=== PATIENT | male | born 1980 | race Two or more races ===

== ENCOUNTER 2025-08-11 14:59 | Inpatient (IN) | payer MEDICAID, OTHER ==
[~2025-08-11] VITALS: Ht 167.6 cm; Wt 118.0 kg
[2025-08-11] MEDS: SODIUM CHLORIDE 0.9% 1,000 ML IV ONE (15:15)
--- NOTE | 2025-08-11 15:18 | ED.PDOC ---
History of Present Illness HPI Comments 44-year-old male came to the ER because he was having right-sided weakness which started this morning around 7:00 a.m.. Patient woke up with right upper arm weakness. He is still went to work when the workers noticed study was having weakness of the right upper extremity was given aspirin by one of the employees. He does have a history of hypotension. Never had symptoms like this in the past. Denies dizziness nausea vomiting. Denies any other symptoms. Chief Complaint: Right Sided Weakness Time Seen by MD: 15:01 Reviewed Notes: Nurses Notes, Medications, Allergies Information Source: Patient Mode of Arrival: Wheelchair Severity: Moderate Timing: Hours Duration: Since onset Past Medical History PAST MEDICAL HISTORY: HTN Surgical History: Denies all surgeries Social History Smoker: Non-Smoker Alcohol: Denies ETOH Use Drugs: Denies Drug Use Constitutional: denies: chills, diaphoresis, fatigue, fever, malaise, sweats, weakness, others EENTM: denies: blurred vision, double vision, ear bleeding, ear discharge, ear drainage, ear pain, ear ringing, eye pain, eye redness, hearing loss, mouth pain, mouth swelling, nasal discharge, nose bleeding, nose congestion, nose pain, photophobia, tearing, throat pain, throat swelling, voice changes, others Respiratory: denies: cough, hemoptysis, orthopnea, SOB at rest, shortness of breath, SOB with excertion, stridor, wheezing, others Cardiovascular: denies: chest pain, dizzy spells, diaphoresis, Dyspnea on exertion, edema, irregular heart beat, left arm pain, lightheadedness, palpitations, PND, syncope, others Gastrointestinal: denies: abdomen distended, abdominal pain, blood streaked bowels, constipated, diarrhea, dysphagia, difficulty swallowing, hematemesis, melena, nausea, poor appetite, poor fluid intake, rectal bleeding, rectal pain, vomiting, others Genitourinary: denies: burning, dysuria, flank pain, frequency, hematuria, incontinence, penile discharge, penile sore, pain, testicle pain, testicle swelling, urgency, others Neurological: reports: right sided weakness; denies: dizziness, fainting, headache, left sided numbness, left sided weakness, numbness, paresthesia, pre- existing deficit, right sided numbness, seizure, speech problems, tingling, tremors, weakness, others Musculoskeletal: denies: back pain, gout, joint pain, joint swelling, muscle pain, muscle stiffness, neck pain, others Integumetry: denies: bruises, change in color, change in hair/nails, dryness, laceration, lesions, lumps, rash, wounds, others Allergic/Immunocompromised: denies: Difficulty Healing, Frequent Infections, Hives, Itching, others Hematologic/Lymphatic: denies: anemia, blood clots, easy bleeding, easy bruising, swollen glands, others Endocrine: denies: excessive hunger, excessive sweating, excessive thirst, excessive urination, flushing, intolerance to cold, intolerance to heat, unexplained weight gain, unexplained weight loss, others Psychiatric: denies: anxiety, bipolar disorder, depression, hopeless, panic disorder, schizophrenia, sleepless, suicidal, others Physical Exam General Appearance: Moderate Distress HEENT: Normal ENT Inspection, Pharynx Normal, TMs Normal Neck: Full Range of Motion, Non-Tender, Normal, Normal Inspection Respiratory: Chest Non-Tender, Lungs Clear, No Accessory Muscle Use, No Respir atory Distress, Normal Breath Sounds Cardiovascular: No Edema, No JVD, No Murmur, No Gallop, Normal Peripheral Pulses, Regular Rate/Rhythm Breast Exam: Deferred Gastrointestinal: No Organomegaly, Non Tender, No Pulsatile Mass, Normal Bowel Sounds, Soft Genitalia: Deferred Pelvic: Deferred Rectal: Deferred Extremities: No calf tenderness, Normal capillary refill, Normal inspection, Normal range of motion, Non-tender, No pedal edema Musculoskeletal : Apperance: Normal Neurologic: Alert, inpatient pharmacist II-XII nml as Tested, No Motor Deficits, Normal Affect, Normal Mood, No Sensory Deficits Cerebellar Function: Normal Reflexes: Normal Skin: Dry, Normal Color, Warm Peripheral Pulses: 3+ Radial (R), 3+ Radial (L) Lymphatic: No Adenopathy Was a procedure done? Was a procedure done?: No EKG EKG : Pulse Rate (adult): 76 Cardiac Rhythm: NSR Differential Dx Considerations may include: TIA Electrolyte imbalance X-Ray, Labs, Meds, VS Vital Signs Date Time Temp Pulse Resp B/P (MAP) Pulse Ox O2 Delivery O2 Flow Rate FiO2 08/11/25 15:02 98.1 91 18 169/84 96 98.1 Lab Test 08/11/25 15:20 Range/Units White Blood Count 9.3 4.4-10.8 10^3/uL Red Blood Count 5.84 4.5-5.90 10^6/uL Hemoglobin 16.1 13.5-17.5 g/dL Hematocrit 46.2 41.0-53.0 % Mean Corpuscular Volume 79.0 L 80.0-100.0 fL Mean Corpuscular Hemoglobin 27.5 L 28.0-32.0 pg Mean Corpuscular Hemoglobin Concent 34.8 32.0-36.0 g/dL Red Cell Distribution Width 13.2 11.8-14.3 % Platelet Count 299 140-450 10^3/uL Mean Platelet Volume 7.0 6.9-10.8 fL Neutrophils (%) (Auto) 79.3 37.0-80.0 % Lymphocytes (%) (Auto) 13.8 10.0-50.0 % Monocytes (%) (Auto) 5.5 0.0-12.0 % Eosinophils (%) (Auto) 0.9 0.0-7.0 % Basophils (%) (Auto) 0.5 0.0-2.0 % Neutrophils # (Auto) 7.4 1.6-8.6 10 ^3/uL Lymphocytes # (Auto) 1.3 0.4-5.4 10 ^3/uL Monocytes # (Auto) 0.5 0-1.3 10 ^3/uL Eosinophils # (Auto) 0.1 0-0.8 10 ^3/uL Basophils # (Auto) 0 0-0.2 10 ^3/uL Nucleated Red Blood Cells 0.1 % Sodium Level 141 136-145 mmol/L Potassium Level 3.9 3.5-5.1 mmol/L Chloride Level 106 98-107 mmol/L Carbon Dioxide Level 27 20-31 mmol/L Anion Gap 8 5-15 Blood Urea Nitrogen 11 9-23 mg/dL Creatinine 1.16 0.700-1.30 mg/dL Glomerular Filtration Rate Calc 80 >90 mL/min BUN/Creatinine Ratio 9.5 L 10.0-20.0 Serum Glucose 110 H 74-106 mg/dL Calcium Level 8.8 8.7-10.4 mg/dL Current Medications Medications (Trade) Dose Ordered Sig/Vitaly Route Start Time Stop Time Status Last Admin Sodium Chloride 1,000 ml @ 1,000 mls/hr Q1H ONCE IV 08/11/25 15:15 08/11/25 16:14 DC 08/11/25 15:15 Aspirin 325 mg ONCE ONCE PO 08/11/25 15:15 08/11/25 15:16 DC 08/11/25 16:04 Patient alert pain Complaining of right-sided weakness. Vitals stable. Answering questions. Blood pressure elevated. Was given clonidine. He does have weakness of the right upper lower extremities. EKG reviewed does not show any acute changes. Explained to the patient. Continue monitoring. Time of 1ST Reevaluation: 15:16 Reevaluation 1ST: Unchanged Patient Education/Counseling: Diagnosis, Treatment, Prognosis Family Education/Counseling: No Family Present SEPSIS Sepsis Screen Date sepsis recognized/suspect: Aug 11, 2025 Time Sepsis recognized/suspect: 1502 Recent Procedure: No On Antibiotic Therapy: No Respiratory Rate >20: No Heart Rate >90: No Temp<36 C (96.8 F) or >38.3 C: No SBP <90 or MAP <65 mmHG: No New Acute Mental Status Change: No Is the patient on CPAP, BIPAP,: No Physician Orders Head Without Contrast (08/11/25 15:13) Electrocardigram (08/11/25 15:28) Clopidogrel Bisulfate (Plavix) (08/11/25 17:00) Vital Signs Date Time Temp Pulse Resp B/P (MAP) Pulse Ox O2 Delivery O2 Flow Rate FiO2 08/11/25 15:02 98.1 91 18 169/84 96 98.1 Laboratory Tests Test 08/11/25 15:20 White Blood Count 9.3 10^3/uL (4.4-10.8) Medications Medications Dose Ordered Sig/Vitaly Route Start Time Stop Time Status Last Admin Dose Admin Aspirin 325 mg ONCE ONCE PO 08/11/25 15:15 08/11/25 15:16 DC 08/11/25 16:04 Sodium Chloride 1,000 ml @ 1,000 mls/hr Q1H ONCE IV 08/11/25 15:15 08/11/25 16:14 DC 08/11/25 15:15 Departure 1 Departure Time of Disposition: 15:17 Impression: Primary Impression: TIA (transient ischemic attack) Disposition: 09 ADMITTED INPATIENT Admit to: Med Surg Condition: Guarded Critical Care Note Critical Care Time?: Yes (90 min-critical care time only) Stability Stability form required: No Heart Score Heart Score: Heart Score Response (Comments) Value History Slightly Suspicious 0 EKG Normal 0 Age <45 0 Risk Factors 1 or 2 risk factors 1 Troponin Normal limit 0 Total 1 FELICIANO BSOS MD Aug 11, 2025 15:18
[2025-08-11 15:32] LABS: Hematocrit 46.2 % (41.0-53.0); Hemoglobin 16.1 g/dL (13.5-17.5); Mean Corpuscular Hemoglobin 27.5 pg (28.0-32.0); Mean Corpuscular Volume 79.0 fL (80.0-100.0); Nucleated Red Blood Cells % 0.1 %
[2025-08-11 15:41] LABS: Chloride 106 mmol/L (98-107); Potassium 3.9 mmol/L (3.5-5.1); Sodium 141 mmol/L (136-145)
[2025-08-11 15:42] LABS: Anion Gap 8 (5-15); Carbon Dioxide 27 mmol/L (20-31)
[2025-08-11 15:43] LABS: Calcium 8.8 mg/dL (8.7-10.4)
[2025-08-11 15:47] LABS: BUN/Creatinine Ratio 9.5 (10.0-20.0); Blood Urea Nitrogen 11 mg/dL (9-23)
[2025-08-11 15:48] LABS: Glucose 110 mg/dL (74-106)
--- NOTE | 2025-08-11 16:19 | DVH ---
Procedure: CT HEAD WITHOUT CONTRAST Study Date and Requested Time: 08/11/2025 03:43 PM History: cva Comparison: None Dose: CTDI: 60.71 mGy DLP: 1094.49 mGycm Technique: Multiplanar images obtained through the brain without intravenous contrast. Findings: Mild diffuse brain atrophy. Severe chronic small-vessel ischemic changes. Small hypodense foci withi n the bilateral basal ganglia and bilateral thalami which may represent lacunar infarcts of unknown c hronicity. No hemorrhages, masses, mass effect, midline shift, or herniation. No intra-axial or extra-axial flui d collections. No evidence of hydrocephalus. The basal cisterns are patent. The pituitary gland, sella and parasellar regions are unremarkable. The cerebellar tonsils are in nor mal position. The cerebellum is unremarkable. The orbits and globes are unremarkable. Minimal mucoperiosteal thickening of the ethmoid air cells. Otherwise, the paranasal sinuses and mastoids are clear. There are no worrisome calvarial lesions. Impression: Small hypodense foci within the bilateral basal ganglia and bilateral thalami which may represent lac unar infarcts of unknown chronicity. MRI would be helpful for further evaluation. Severe chronic small-vessel ischemic changes. Superimposed areas of acute infarct can not be exclude d.
[2025-08-11 16:33] VITALS: PULSE 71; RESP 16; O2SAT 100
[2025-08-11] MEDS: CLOPIDOGREL BISULFATE 75 MG TAB PO ONE (17:36)
--- NOTE | 2025-08-11 18:25 | ECG ---
[facility] Test Date: 2025-08-11 Test Time: 15:15:38 Pat Name: FARZANA CASAS Department: ED Room: [address] [place] [address] Gender: M [employer] Director: NADINE : 1980 Requested By: FELICIANO BOSS Order Number: [id number] Reading MD: Corbin Cleary Measurements Intervals [place] Rate: 76 P: 36 DE: 171 QRS: -7 QRSD: 98 T: 98 QT: 390 QTc: 439 Interpretive Statements Sinus rhythm RSR' in V1 or V2, probably normal variant Borderline T abnormalities, lateral leads Minimal ST elevation, anterior leads Electronically Signed On 08-13-2025 18:45:02 PDT by Corbin Cleary Please click the below link to view image of tracing.
--- NOTE | 2025-08-11 22:59 | DVHHP2 ---
History of Present Illness Reason for Visit: TIA (transient ischemic attack) History of Present Illness The patient is a 44-year-old male with past medical history of hypertension who presented to [facility] ED with complaint of right-sided weakness since this morning. Patient reports he woke up with right upper arm weakness, but went to work, staff member notice patient having weakness of the right upper extremity and was given aspirin by one of the employees. Patient was seen and evaluated in the ED, laboratory data shows WBC 9.3, platelets 299, sodium 141, potassium 3.9, BUN 11, creatinine 1.16, glucose 110, calcium 8.8, blood pressure 171/93 trending down to 143/86, heart rate 64, temperature 98.4 F, O2 saturation 97% on room air. Head CT revealing small hypodense foci within the bilateral basal ganglia and bilateral thalami which may represent lacunar infarcts of unknown chronicity; severe chronic small-vessel ischemic changes; superimposed areas of acute infarct can not be excluded. Please see medication orders section in the computer. On my assessment, patient denies chest pain, no dizziness, headache, shortness a breath, abdominal pain, diarrhea, nausea, vomiting, fever, chills. Patient was admitted for further evaluation and medical management. Past Medical History HTN Past Surgical History Denies all surgeries Family History Reviewed, noncontributory to the management of this case. Past Social History The patient lives at home, denies smoking, alcohol or illicit drugs abuse. Review of Systems Constitutional: Yes: Weakness; No: Fever, Chills, Sweats, Malaise, Other Eyes: No: Pain, Vision change, Conjunctivae inflammation, Eyelid inflammation, Other, Redness ENT: No: Ear pain, Ear discharge, Nose pain, Nose discharge, Nose congestion, Mouth pain, Mouth swelling, Throat pain, Throat swelling, Other Respiratory: No: Cough, Dry, Shortness of breath, SOB with excertion, Wheezing, Hemoptysis, Pleuritic Pain, Sputum, Wheezing, Other Cardiovascular: No: Chest Pain, Palpitations, Orthopnea, Paroxysmal Noc. Dyspnea, Edema, Lt Headedness, Other Gastrointestinal: No: Nausea, Vomiting, Abdominal Pain, Diarrhea, Constipation, Melena, Hematochezia, Other Genitourinary: No Dysuria, No Frequency, No Incontinence, No Hematuria, No Retention, No Other Musculoskeletal: No: other, neck pain, shoulder pain, arm pain, back pain, hand pain, leg pain, foot pain Skin: No: Rash, Lesions, Jaundice, Bruising, Other Neurological: No: Weakness (Right-sided), Numbness, Incoordination, Change in speech, Confusion, Seizures, Other Allergies: Coded Allergies: Sulfa Antibiotics (Verified Allergy, Unknown, 08/11/25) Exam Vital Signs Vital Signs Date Time Temp Pulse Resp B/P (MAP) Pulse Ox O2 Delivery O2 Flow Rate FiO2 08/11/25 22:15 64 17 171/93 (119) 97 08/11/25 19:45 98.4 98.4 08/11/25 19:45 Room Air* 0 21 General Appearance: Alert, Oriented X3, Cooperative, No acute distress HEENT: Atraumatic, PERRLA, EOMI, Mucous membr. moist/pink Respiratory: Clear to auscultation, Normal air movement Cardiovascular: Regular rate, Normal S1, Normal S2, No murmurs Abdominal: Normal bowel sounds, Soft, No tenderness, No hepatospenomegaly, No masses Extremities: No clubbing, No cyanosis, No edema, Normal pulses, Other (Right- sided weakness) Skin: No rashes, No breakdown, No significant lesion Neuro: Normal speech, Normal tone, Sensation intact, Cranial nerves 3-12 NL, Reflexes 2+, Other (Generalized weakness) Psych/Mental Status: Mental status NL, Mood NL Labs/Xrays Labs Test 08/11/25 15:20 Range/Units White Blood Count 9.3 4.4-10.8 10^3/uL Red Blood Count 5.84 4.5-5.90 10^6/uL Hemoglobin 16.1 13.5-17.5 g/dL Hematocrit 46.2 41.0-53.0 % Mean Corpuscular Volume 79.0 L 80.0-100.0 fL Mean Corpuscular Hemoglobin 27.5 L 28.0-32.0 pg Mean Corpuscular Hemoglobin Concent 34.8 32.0-36.0 g/dL Red Cell Distribution Width 13.2 11.8-14.3 % Platelet Count 299 140-450 10^3/uL Mean Platelet Volume 7.0 6.9-10.8 fL Neutrophils (%) (Auto) 79.3 37.0-80.0 % Lymphocytes (%) (Auto) 13.8 10.0-50.0 % Monocytes (%) (Auto) 5.5 0.0-12.0 % Eosinophils (%) (Auto) 0.9 0.0-7.0 % Basophils (%) (Auto) 0.5 0.0-2.0 % Neutrophils # (Auto) 7.4 1.6-8.6 10 ^3/uL Lymphocytes # (Auto) 1.3 0.4-5.4 10 ^3/uL Monocytes # (Auto) 0.5 0-1.3 10 ^3/uL Eosinophils # (Auto) 0.1 0-0.8 10 ^3/uL Basophils # (Auto) 0 0-0.2 10 ^3/uL Nucleated Red Blood Cells 0.1 % Sodium Level 141 136-145 mmol/L Potassium Level 3.9 3.5-5.1 mmol/L Chloride Level 106 98-107 mmol/L Carbon Dioxide Level 27 20-31 mmol/L Anion Gap 8 5-15 Blood Urea Nitrogen 11 9-23 mg/dL Creatinine 1.16 0.700-1.30 mg/dL Glomerular Filtration Rate Calc 80 >90 mL/min BUN/Creatinine Ratio 9.5 L 10.0-20.0 Serum Glucose 110 H 74-106 mg/dL Calcium Level 8.8 8.7-10.4 mg/dL PATIENT: FARZANA CASAS ACCT: [id number] UNIT: [id number] : 1980 LOC: ER ROOM / BED: / AGE / SEX: 44 / M ADM STATUS: REG ER SERVICE 1513 ORDERING PHYSICIAN: FELICIANO BOSS MD PROCEDURE(s): HWOCT - HEAD WITHOUT CONTRAST REASON: cva ORDER NUMBER(s): [id number], ACCESSION NUMBER(s): [id number] Procedure: CT HEAD WITHOUT CONTRAST Study Date and Requested Time: 08/11/2025 03:43 PM History: cva Comparison: None Dose: CTDI: 60.71 mGy DLP: 1094.49 mGycm Technique: Multiplanar images obtained through the brain without intravenous contrast. Findings: Mild diffuse brain atrophy. Severe chronic small-vessel ischemic changes. Small hypodense foci within the bilateral basal ganglia and bilateral thalami which may represent lacunar infarcts of unknown chronicity. No hemorrhages, masses, mass effect, midline shift, or herniation. No intra- axial or extra-axial fluid collections. No evidence of hydrocephalus. The basal cisterns are patent. The pituitary gland, sella and parasellar regions are unremarkable. The cerebellar tonsils are in normal position. The cerebellum is unremarkable. The orbits and globes are unremarkable. Minimal mucoperiosteal thickening of the ethmoid air cells. Otherwise, the paranasal sinuses and mastoids are clear. There are no worrisome calvarial lesions. Impression: Small hypodense foci within the bilateral basal ganglia and bilateral thalami which may represent lacunar infarcts of unknown chronicity. MRI would be helpful for further evaluation. Severe chronic small-vessel ischemic changes. Superimposed areas of acute infarct can not be excluded. SEPSIS Sepsis Screen Date sepsis recognized/suspect: Aug 11, 2025 Time Sepsis recognized/suspect: 2007 Recent Procedure: No On Antibiotic Therapy: No Respiratory Rate >20: No Heart Rate >90: No Temp<36 C (96.8 F) or >38.3 C: No SBP <90 or MAP <65 mmHG: No New Acute Mental Status Change: No Is the patient on CPAP, BIPAP,: No Physician Orders Head Without Contrast (08/11/25 15:13) Aspirin Tablet (08/12/25 10:00) Clopidogrel Bisulfate (Plavix) (08/12/25 10:00) * Neurology Consult (08/11/25 22:55) Losartan Tablet (Cozaar Tablet) (08/12/25 10:00) Hydralazine Injection (Apresoline Inject (08/11/25 23:00) Admit (08/11/25 22:55) Allergies (08/11/25 22:55) Code Status (08/11/25 22:55) Sodium Chloride Lock (Saline Lock Ns) (08/12/25 06:00) Oxygen Per Hour (08/11/25 22:55) Hydrocodone-Acet 5/325mg Tab ([place] 5/32 (08/11/25 23:00) Vital Signs Date Time Temp Pulse Resp B/P (MAP) Pulse Ox O2 Delivery O2 Flow Rate FiO2 08/11/25 22:15 64 17 171/93 (119) 97 08/11/25 19:45 98.4 72 20 180/110 (133) 95 98.4 08/11/25 19:45 Room Air* 0 21 08/11/25 18:35 60 16 170/112 (131) 100 08/11/25 16:33 71 16 149/110 (123) 100 08/11/25 16:33 71 16 100 Room Air* 0 21 08/11/25 15:24 76 08/11/25 15:18 76 08/11/25 15:02 98.1 91 18 169/84 96 98.1 Laboratory Tests Test 08/11/25 15:20 White Blood Count 9.3 10^3/uL (4.4-10.8) Medications Medications Dose Ordered Sig/Vitaly Route Start Time Stop Time Status Last Admin Dose Admin Aspirin 325 mg ONCE ONCE PO 08/11/25 15:15 08/11/25 15:16 DC 08/11/25 16:04 325 MG Clopidogrel Bisulfate 150 mg ONCE ONCE PO 08/11/25 17:00 08/11/25 17:01 DC 08/11/25 17:36 150 MG Sodium Chloride 1,000 ml @ 1,000 mls/hr Q1H ONCE IV 08/11/25 15:15 08/11/25 16:14 DC 08/11/25 15:15 1,000 MLS/HR Assessment/Plan Assessment/Plan TIA (transient ischemic attack) Hypertensive urgency Generalized weakness Plan 1. Admit to telemetry unit 2. Breathing treatment 3. Pain control management 4. Management of fluids and electrolytes 5. Consultation for Neurology 6. Diagnostic tests head CT 7. DVT prophylaxis-on SCDs 8. Repeat labs CBC, CMP in a.m. 9. Continue with current medical management 10. Treatment plan discussed with patient and RN. Patient verbalized understanding. Plan discussed with: Patient, Other (RN) My Orders Orders - NOAH HOLBROOK DNP Procedure Category Date Status Time Aspirin Tablet PHA 08/12/25 Verified 10:00 Clopidogrel Bisulfate PHA 08/12/25 Verified (Plavix) 10:00 * Neurology Consult CONS 08/11/25 Verified 22:55 Losartan Tablet PHA 08/12/25 Verified (Cozaar Tablet) 10:00 Hydralazine Injection PHA 08/11/25 Verified (Apresoline Inject 23:00 Admit ADMIT 10/16/25 Verified 22:55 Allergies ELIZA 08/11/25 Verified 22:55 Code Status CODE 08/11/25 Verified 22:55 Sodium Chloride Lock PHA 08/12/25 Verified (Saline Lock Ns) 06:00 Oxygen Per Hour RT 08/11/25 Verified 22:55 Hydrocodone-Acet PHA 08/11/25 Verified 5/325mg Tab ([place] 23:00 Problem List: (1) TIA (transient ischemic attack) (2) Hypertensive urgency (3) Generalized weakness Date of Service: Aug 11, 2025 Billing Provider: NOAH HOLBROOK DNP Common Visit Codes: [id number] INP/OBS CARE (HIGH) NOAH HOLBROOK DNP Aug 11, 2025 22:59
[2025-08-11] MEDS ORDERED: NITROGLYCERIN 0.4 MG SL TAB SL PRN (23:00)
[2025-08-11] MEDS ORDERED: ONDANSETRON HCL 4 MG/2 ML VIAL IV PRN (23:00)
[2025-08-11] MEDS ORDERED: DOCUSATE SOD 100 MG CAP PO PRN (23:00)
[2025-08-11] MEDS ORDERED: MORPHINE SULFATE INJ 2 MG/ml SYRG IV PRN (23:00)
[2025-08-11] MEDS ORDERED: HYDROcodone-ACET 5/325MG TAB PO PRN (23:00)
[2025-08-11] MEDS ORDERED: ACETAMINOPHEN 325 MG TAB PO PRN (23:00)
[2025-08-12] MEDS: SODIUM CHLOR 0.9% PF (SALINE LOCK) 10ML VIAL/SYR IV SCH (05:35)
[2025-08-12] MEDS: hydrALAZINE HCL 20 MG/ML VL IV PRN (05:38)
[2025-08-12 06:02] LABS: Hematocrit 44.2 % (41.0-53.0); Hemoglobin 15.1 g/dL (13.5-17.5); Mean Corpuscular Hemoglobin 27.1 pg (28.0-32.0); Mean Corpuscular Volume 79.4 fL (80.0-100.0); Nucleated Red Blood Cells % 0.1 %
[2025-08-12 06:19] LABS: Alanine Aminotransferase 18 U/L (7-40); Albumin 4.0 g/dL (3.2-4.8); Alkaline Phosphatase 60 U/L (46-116); Anion Gap 9 (5-15); BUN/Creatinine Ratio 9.9 (10.0-20.0); Blood Urea Nitrogen 11 mg/dL (9-23); Carbon Dioxide 28 mmol/L (20-31); Chloride 107 mmol/L (98-107); Glucose 85 mg/dL (74-106); Potassium 3.8 mmol/L (3.5-5.1); Sodium 144 mmol/L (136-145); Total Protein 6.9 g/dL (5.7-8.2)
[2025-08-12 06:20] LABS: Bilirubin, Total 0.7 mg/dL (0.2-1.0); Calcium 8.6 mg/dL (8.7-10.4)
[2025-08-12 08:00] VITALS: PULSE 90; RESP 16; O2SAT 92
[2025-08-12 09:00] VITALS: BP 183/114; PULSE 68; RESP 16; TEMP 98.5; O2SAT 99
[2025-08-12] MEDS: CLOPIDOGREL BISULFATE 75 MG TAB PO SCH (10:00)
[2025-08-12] MEDS: LOSARTAN POTASSIUM 50 MG TAB PO SCH (10:00)
--- NOTE | 2025-08-12 12:25 | DVHPN2 ---
Subjective THe patient seen and examined at bedside. Feel weak today. Reviewed: Care Plan, H&P, Labs, Medications, Previous Orders, Radiology Changes from previous H/P or p: No Changes Eyes: No Pain, No Vision change, No Conjunctivae inflammation, No Eyelid inflammation, No Other, No Redness ENT: No Ear pain, No Ear discharge, No Nose pain, No Nose discharge, No Nose congestion, No Mouth pain, No Mouth swelling, No Throat pain, No Throat swelling, No Other Cardiovascular: No Chest Pain, No Palpitations, No Orthopnea, No Paroxysmal Noc. Dyspnea, No Edema, No Lt Headedness, No Other Respiratory: No Cough, No Dry, No Shortness of breath, No SOB with excertion, No Wheezing, No Hemoptysis, No Pleuritic Pain, No Sputum, No Other Gastrointestinal: No Nausea, No Vomiting, No Abdominal Pain, No Diarrhea, No Constipation, No Melena, No Hematochezia, No Other Genitourinary: No Dysuria, No Frequency, No Incontinence, No Hematuria, No Retention, No Other Musculoskeletal: No other, No neck pain, No shoulder pain, No arm pain, No back pain, No hand pain, No leg pain, No foot pain Skin: No Rash, No Lesions, No Jaundice, No Bruising, No Other Objective Vitals Vital Signs Date Time Temp Pulse Resp B/P (MAP) Pulse Ox O2 Delivery O2 Flow Rate FiO2 08/12/25 10:00 183/114 08/12/25 09:00 98.5 68 16 99 98.5 08/12/25 08:00 Room Air* 0 21 General Appearance: Alert, Oriented X3, Cooperative, No acute distress HEENT: Atraumatic, PERRLA, EOMI, Mucous membr. moist/pink Neck: Supple Lungs: Clear to auscultation, Normal air movement Cardiovascular: Regular rate, Normal S1, Normal S2, No murmurs, Gallops, Rubs Abdomen: Normal bowel sounds, Soft, No tenderness Medications Current Medications Medications Dose Ordered Sig/Vitaly Route Start Time Stop Time Status Last Admin Dose Admin Aspirin 81 mg DAILY PO 08/12/25 10:00 08/12/25 10:00 81 MG Clopidogrel Bisulfate 75 mg DAILY PO 08/12/25 10:00 08/12/25 10:00 75 MG Losartan Potassium 50 mg DAILY PO 08/12/25 10:00 08/12/25 10:00 50 MG Hydralazine HCl 10 mg Q6HP PRN IV 08/11/25 23:00 08/12/25 05:38 10 MG Sodium Chloride 10 ml Q8HR IV 08/12/25 06:00 Acetaminophen/ Hydrocodone Bitart 1 tab Q4HP PRN PO 08/11/25 23:00 Ondansetron HCl 4 mg Q4HP PRN IV 08/11/25 23:00 Docusate Sodium 100 mg BIDPRN PRN PO 08/11/25 23:00 Acetaminophen 650 mg Q6HP PRN PO 08/11/25 23:00 Nitroglycerin 0.4 mg Q5MINP PRN SL 08/11/25 23:00 Morphine Sulfate 2 mg Q30M PRN IV 08/11/25 23:00 Clonidine HCl 0.1 mg Q6HP PRN PO 08/12/25 08:00 Laboratory Results Laboratory Tests 08/12/25 05:15 Chemistry Test 08/11/25 15:20 08/12/25 05:15 Calcium Level 8.8 mg/dL (8.7-10.4) 8.6 mg/dL (8.7-10.4) L Albumin 4.0 g/dL (3.2-4.8) Total Protein 6.9 g/dL (5.7-8.2) LFT Test 08/12/25 05:15 Alanine Aminotransferase (ALT) 18 U/L (7-40) Alkaline Phosphatase 60 U/L (46-116) Aspartate Amino Transferase (AST) 23 U/L (13-40) Total Bilirubin 0.7 mg/dL (0.2-1.0) Labs and/or images reviewed: Labs reviewed by me Assessment/Plan Assessment/Plan TIA (transient ischemic attack) Hypertensive urgency Generalized weakness Continue current management. Continue HTN meds Ct head review and normal Encourage the patient to be out of bed and ambulate with PT Discharge planning. Plan discussed with: Patient Date of Service: Aug 11, 2025 Billing Provider: CYDNEY GOETZ MD Common Visit Codes: [id number] INP/OBS CARE(HIGH) CYDNEY GOETZ MD Aug 12, 2025 12:25
--- NOTE | 2025-08-13 00:06 | DVHDS2 ---
Discharge Summary Date of Admission Aug 11, 2025 at 22:55 Date of Discharge: Aug 12, 2025 Admitting Diagnosis TIA (transient ischemic attack) Hypertensive urgency Generalized weakness Labs/Diagnostic Data: Laboratory Results Test 08/12/25 05:15 White Blood Count 7.9 10^3/uL (4.4-10.8) Red Blood Count 5.57 10^6/uL (4.5-5.90) Hemoglobin 15.1 g/dL (13.5-17.5) Hematocrit 44.2 % (41.0-53.0) Mean Corpuscular Volume 79.4 fL (80.0-100.0) Mean Corpuscular Hemoglobin 27.1 pg (28.0-32.0) Mean Corpuscular Hemoglobin Concent 34.1 g/dL (32.0-36.0) Red Cell Distribution Width 13.0 % (11.8-14.3) Platelet Count 282 10^3/uL (140-450) Mean Platelet Volume 7.0 fL (6.9-10.8) Neutrophils (%) (Auto) 68.1 % (37.0-80.0) Lymphocytes (%) (Auto) 22.1 % (10.0-50.0) Monocytes (%) (Auto) 7.1 % (0.0-12.0) Eosinophils (%) (Auto) 2.3 % (0.0-7.0) Basophils (%) (Auto) 0.4 % (0.0-2.0) Neutrophils # (Auto) 5.4 10 ^3/uL (1.6-8.6) Lymphocytes # (Auto) 1.8 10 ^3/uL (0.4-5.4) Monocytes # (Auto) 0.6 10 ^3/uL (0-1.3) Eosinophils # (Auto) 0.2 10 ^3/uL (0-0.8) Basophils # (Auto) 0 10 ^3/uL (0-0.2) Nucleated Red Blood Cells 0.1 % Sodium Level 144 mmol/L (136-145) Potassium Level 3.8 mmol/L (3.5-5.1) Chloride Level 107 mmol/L (98-107) Carbon Dioxide Level 28 mmol/L (20-31) Anion Gap 9 (5-15) Blood Urea Nitrogen 11 mg/dL (9-23) Creatinine 1.11 mg/dL (0.700-1.30) Glomerular Filtration Rate Calc 85 mL/min (>90) BUN/Creatinine Ratio 9.9 (10.0-20.0) Serum Glucose 85 mg/dL (74-106) Calcium Level 8.6 mg/dL (8.7-10.4) Total Bilirubin 0.7 mg/dL (0.2-1.0) Aspartate Amino Transferase (AST) 23 U/L (13-40) Alanine Aminotransferase (ALT) 18 U/L (7-40) Alkaline Phosphatase 60 U/L (46-116) Total Protein 6.9 g/dL (5.7-8.2) Albumin 4.0 g/dL (3.2-4.8) Other Laboratory Tests 08/12/25 05:15 Brief Hx & Hospital Course: This is a 44 years old male with past medical history hypertension come to emergency department because of right-sided weakness. The patient woke up with right upper arm weakness but he went to work. Then his staff member noticed the patient had weakness on the right upper extremity and was given aspirin by one of the employee. The patient was seen by ER . CT head review a small hypodense foci in the bilateral basal ganglia and bilateral thalami which may represent old lacunar infarct of the unknown chronicity; severe chronic small-vessel ischemic changes; superimposed areas of acute infarct can not be excluded. The patient was admitted. The patient was found to have hypertension urgency with systolic blood pressure at 160-180. Hypertensive medication hydralazine was given by IV which able to bring down his blood pressure to 140 systolic however his blood pressure still very fluctuating. MRI was order however patient grew inpatient and leave against medical advice. Patient verbally understand without further workup he might suffer from more stroke or even but the patient is still wanted to leave against medical advice. Physical exam prior to leaving against medical advice show HEENT: Normocephalic atraumatic pupils equal react to light and accommodation. Extraocular muscles intact, conjunctiva pink, oropharynx moist, no thrush, no exudate. Lymphatic: No lymphadenopathy Cardiovascular exam: S1, S2 was heard. No murmurs, rubs, gallops Lung: Clear on auscultation bilaterally, no wheeze, rale, rhonchi. GI: Abdominal soft, nondistended, nontenderness, positive bowel sounds. Extremity: No crepitus, cyanosis, edema. Pedal pulses present bilateral. Full range of motion. Skin: Normal turgor, no rash. Psych: Alert, oriented x3. Neurology: Right side weakness both upper and lower extremity. This medical document was created using an electronic medical record system with [employer] direct computerized dictation system. Although this document has been carefully reviewed, there may still be some phonetic and typographical errors. These areas are purely typographical due to imperfections of the software programs, and do not reflect any compromise in the patient's medical care. Condition at Discharge: Guarded Final Diagnosis/Problems List TIA (transient ischemic attack) Possible lacunar infarct with right-sided weakness Hypertensive urgency Discharge Disposition: AMA Discharge Statement: "Patient was advised to return to the ER or call 911 if any headaches, dizziness, shortness of breath, chest pain, abdominal pain, bleeding, fevers, or worsening of medical condition. Patient was counseled about treatment plan, medications, possible side effects, patientverbalized understanding. All questions were answered to the best of my ability. This discharge took greater then 30 minutes in planning, reviewing documentation, counseling the patient, and discussing with other team members." ASSESSMENT ASSESSMENT Assessment Date of Service: Aug 12, 2025 Billing Provider: CYDNEY GOETZ MD Common Visit Codes: 66484-UBG/OBS DISCH DAY >30min CYDNEY GOETZ MD Aug 13, 2025 00:06
--- NOTE | 2025-08-15 01:31 | DVHPN2 ---
Date of Service: Aug 11, 2025 Billing Provider: CYDNEY GOETZ MD Common Visit Codes: NOT BILLABLE CYDNEY GOETZ MD Aug 15, 2025 01:31
== END 2025-08-12 13:13 | disposition left against medical advice (07) | DRG 45 ==
LOC: ER 14:59 → OVERFLOW 22:55
PROVIDERS: ADMIT Internal Medicine; ATTEND Internal Medicine
DX: I63.81 Other cerebral infarction due to occlusion or stenosis of small artery (principal); I16.0 Hypertensive urgency; G45.9 Transient cerebral ischemic attack, unspecified; I10 Essential (primary) hypertension; Z53.29 Procedure and treatment not carried out because of patient's decision for other reasons; Z79.899 Other long term (current) drug therapy; Z86.73 Personal history of transient ischemic attack (TIA), and cerebral infarction without residual deficits
CPT/HCPCS: 36415; 70450; 80048; 80053; 85025; 93005; 96360; G0378

== ENCOUNTER 2025-08-14 20:36 | Inpatient (IN) | payer MEDICAID ==
[~2025-08-14] VITALS: Ht 167.6 cm; Wt 121.0 kg
[2025-08-14 21:39] LABS: Hematocrit 47.5 % (41.0-53.0); Hemoglobin 16.9 g/dL (13.5-17.5); Mean Corpuscular Hemoglobin 27.7 pg (28.0-32.0); Mean Corpuscular Volume 77.8 fL (80.0-100.0); Nucleated Red Blood Cells % 0.2 %
[2025-08-14 21:55] LABS: Alanine Aminotransferase 21 U/L (7-40); Albumin 4.7 g/dL (3.2-4.8); Alkaline Phosphatase 68 U/L (46-116); Anion Gap 13 (5-15); BUN/Creatinine Ratio 14.3 (10.0-20.0); Bilirubin, Total 1.0 mg/dL (0.2-1.0); Blood Urea Nitrogen 17 mg/dL (9-23); Calcium 9.9 mg/dL (8.7-10.4); Carbon Dioxide 23 mmol/L (20-31); Chloride 102 mmol/L (98-107); Glucose 81 mg/dL (74-106); INR 1.13 (0.9-1.15); Magnesium 1.9 mg/dL (1.6-2.6); Partial Thromboplastin Time 30.2 SEC (24.5-34.5); Potassium 3.8 mmol/L (3.5-5.1); Prothrombin Time 11.8 sec (9.3-11.8); Sodium 138 mmol/L (136-145)
[2025-08-14 21:57] LABS: Total Protein 8.2 g/dL (5.7-8.2)
--- NOTE | 2025-08-14 22:05 | DVH ---
EXAM: XY CHEST PORTABLE CLINICAL HISTORY: SOB TECHNIQUE: Single AP view of the chest WID: COMPARISON: None FINDINGS: Lines and tubes: None Chest: The heart size and pulmonary vasculature is within normal limits. No pleural effusion, pneumothorax, or consolidation. The osseous structures are grossly intact. IMPRESSION: 1. No acute cardiopulmonary abnormality.
--- NOTE | 2025-08-14 22:29 | DVH ---
INDICATION: right sided weakness COMPARISON: CT HEAD WITHOUT CONTRAST on DOS: 08/11/25 TECHNIQUE: CTA head without and with intravenous contrast. CTA neck with intravenous contrast. 3D image postprocessing was performed on a dedicated workstation and images were used for interpretation and reporting. Radiation Dose Information: CT Dose: CTDI volume is 62.56 mGy. Dose-length product is 1731.36 mGy*cm FINDINGS: CT head: There is no evidence of acute intracranial hemorrhage, extra-axial collection, mass effect, midline s hift, herniation or hydrocephalus. The ventricles, sulci and cisterns are age appropriate. The carey -white differentiation is intact. The visualized paranasal sinuses and mastoid air cells are clear. The surrounding soft tissues and osseous structures are unremarkable. CTA head: There is normal enhancement of the visualized distal internal carotid, anterior and middle cerebral a rteries. There is a normal anterior communicating artery complex. There are bilateral posterior com municating arteries. The vertebral, basilar, cerebellar and posterior cerebral arteries are within n ormal limits. The early parenchymal enhancement is grossly unremarkable. The visualized intracrania l venous structures are grossly unremarkable. CTA neck: The visualized thoracic aortic arch and proximal great vessels are unremarkable. The left common, internal and external carotid arteries are within normal limits. The right common, internal and external carotid arteries are within normal limits. The cervical segments of the right and left vertebral arteries are within normal limits. The limited visualized lung apices are clear. The surrounding soft tissues and osseous structures ar e otherwise unremarkable. IMPRESSION: No evidence of acute intracranial hemorrhage, mass effect or hydrocephalus. No evidence of hemodynamically significant intracranial stenosis, proximal occlusion or aneurysm. No evidence of hemodynamically significant cervical stenosis or dissection. All CT scans at this medical facility are performed using dose modulation techniques as appropriate t o a performed exam including the following: Automated exposure control was utilized; adjustment of th e MA and/or KV according to patient size; and use of iterative reconstruction technique.
--- NOTE | 2025-08-14 22:46 | ED.PDOC ---
HPI (NEURO) HPI Comments 44 y/o morbidly obese M, with a Hx of TIA, presents with c/c of right-sided weakness and numbness. Patient reports on returning to the ED for ongoing symptoms following previous ED visit on 08/11/25 when he was told on having a 'baby stroke'. He states on symptoms, initially, beginning that same day of 08/11/25 at 0700 after waking up from bed. He comments on still being able to feel his right side but notices on dragging his right side than his usual baseline. Denies any further acute symptoms. Chief Complaint: General Weakness Time Seen by MD: 22:30 Reviewed Notes: Nurses Notes, Medications, Allergies Information Source: Patient Mode of Arrival: Ambulatory Past Medical History PAST MEDICAL HISTORY: TIA Surgical History: Denies all surgeries Social History Smoker: Non-Smoker Alcohol: Denies ETOH Use Drugs: Denies Drug Use All Other Systems: Reviewed and Negative (As per HPI) Physical Exam General Appearance: No Apparent Distress, Obese, Other (appears chronically ill) HEENT: Normal ENT Inspection, Pharynx Normal, TMs Normal Neck: Full Range of Motion, Non-Tender, Normal, Normal Inspection Respiratory: Chest Non-Tender, Lungs Clear, No Accessory Muscle Use, No Respiratory Distress, Normal Breath Sounds Cardiovascular: No Edema, No JVD, No Murmur, No Gallop, Normal Peripheral Pulses, Regular Rate/Rhythm Breast Exam: Deferred Gastrointestinal: No Organomegaly, Non Tender, No Pulsatile Mass, Normal Bowel Sounds, Soft Genitalia: Deferred Pelvic: Deferred Rectal: Deferred Extremities: No calf tenderness, Normal capillary refill, Normal inspection, Normal range of motion, Non-tender, No pedal edema Musculoskeletal : Apperance: Normal Neurologic: Alert, chief crna II-XII nml as Tested, No Motor Deficits, Normal Affect, Normal Mood, No Sensory Deficits Cerebellar Function: Normal Reflexes: Normal Skin: Dry, Normal Color, Warm Lymphatic: No Adenopathy Was a procedure done? Was a procedure done?: No Differential Diagnosis (SZ) CVA: Rivas's Palsy, CVA, Electrolyte Imbalance, TIA X-Ray, Labs, Meds, VS Vital Signs Date Time Temp Pulse Resp B/P (MAP) Pulse Ox O2 Delivery O2 Flow Rate FiO2 08/14/25 20:47 99.0 103 16 170/130 98 99.0 Lab Test 08/14/25 22:51 10/19/25 21:17 Range/Units Troponin I High Sensitivity 26 27 </=54 ng/L White Blood Count 9.1 4.4-10.8 10^3/uL Red Blood Count 6.10 H 4.5-5.90 10^6/uL Hemoglobin 16.9 13.5-17.5 g/dL Hematocrit 47.5 41.0-53.0 % Mean Corpuscular Volume 77.8 L 80.0-100.0 fL Mean Corpuscular Hemoglobin 27.7 L 28.0-32.0 pg Mean Corpuscular Hemoglobin Concent 35.5 32.0-36.0 g/dL Red Cell Distribution Width 13.4 11.8-14.3 % Platelet Count 318 140-450 10^3/uL Mean Platelet Volume 7.0 6.9-10.8 fL Neutrophils (%) (Auto) 74.5 37.0-80.0 % Lymphocytes (%) (Auto) 17.7 10.0-50.0 % Monocytes (%) (Auto) 6.8 0.0-12.0 % Eosinophils (%) (Auto) 0.8 0.0-7.0 % Basophils (%) (Auto) 0.2 0.0-2.0 % Neutrophils # (Auto) 6.8 1.6-8.6 10 ^3/uL Lymphocytes # (Auto) 1.6 0.4-5.4 10 ^3/uL Monocytes # (Auto) 0.6 0-1.3 10 ^3/uL Eosinophils # (Auto) 0.1 0-0.8 10 ^3/uL Basophils # (Auto) 0 0-0.2 10 ^3/uL Nucleated Red Blood Cells 0.2 % Prothrombin Time 11.8 9.3-11.8 sec Prothrombin Time INR 1.13 0.9-1.15 Activated Partial Thromboplast Time 30.2 24.5-34.5 SEC Sodium Level 138 # 136-145 mmol/L Potassium Level 3.8 3.5-5.1 mmol/L Chloride Level 102 98-107 mmol/L Carbon Dioxide Level 23 20-31 mmol/L Anion Gap 13 5-15 Blood Urea Nitrogen 17 9-23 mg/dL Creatinine 1.19 0.700-1.30 mg/dL Glomerular Filtration Rate Calc 78 >90 mL/min BUN/Creatinine Ratio 14.3 10.0-20.0 Serum Glucose 81 74-106 mg/dL Calcium Level 9.9 8.7-10.4 mg/dL Magnesium Level 1.9 1.6-2.6 mg/dL Total Bilirubin 1.0 0.2-1.0 mg/dL Aspartate Amino Transferase (AST) 24 13-40 U/L Alanine Aminotransferase (ALT) 21 7-40 U/L Alkaline Phosphatase 68 46-116 U/L Total Protein 8.2 5.7-8.2 g/dL Albumin 4.7 3.2-4.8 g/dL Current Medications Medications (Trade) Dose Ordered Sig/Vitaly Route Start Time Stop Time Status Last Admin Aspirin 162 mg ONCE ONCE PO 08/14/25 22:45 08/14/25 22:46 DC 08/15/25 00:37 [place] [address] Ph: [phone] DIAGNOSTIC IMAGING Diagnostic Imaging Report : [id number] Signed PATIENT: FARZANA CASAS ACCT: [id number] UNIT: [id number] : 1980 LOC: ER ROOM / BED: / AGE / SEX: 44 / M ADM STATUS: REG ER SERVICE 58 ORDERING PHYSICIAN: ROS MORA MD PROCEDURE(s): [place] - ANGIO HEAD/Neck REASON: right sided weakness ORDER NUMBER(s): [id number], ACCESSION NUMBER(s): [id number] INDICATION: right sided weakness COMPARISON: CT HEAD WITHOUT CONTRAST on DOS: 08/11/25 TECHNIQUE: CTA head without and with intravenous contrast. CTA neck with intravenous contrast. 3D image postprocessing was performed on a dedicated workstation and images were used for interpretation and reporting. Radiation Dose Information: CT Dose: CTDI volume is 62.56 mGy. Dose-length product is 1731.36 mGy*cm FINDINGS: CT head: There is no evidence of acute intracranial hemorrhage, extra-axial collection, mass effect, midline shift, herniation or hydrocephalus. The ventricles, sulci and cisterns are age appropriate. The carey-white differentiation is intact. The visualized paranasal sinuses and mastoid air cells are clear. The surrounding soft tissues and osseous structures are unremarkable. CTA head: There is normal enhancement of the visualized distal internal carotid, anterior and middle cerebral arteries. There is a normal anterior communicating artery complex. There are bilateral posterior communicating arteries. The vertebral, basilar, cerebellar and posterior cerebral arteries are within normal limits. The early parenchymal enhancement is grossly unremarkable. The visualized intracranial venous structures are grossly unremarkable. CTA neck: The visualized thoracic aortic arch and proximal great vessels are unremarkable. The left common, internal and external carotid arteries are within normal limits. The right common, internal and external carotid arteries are within normal limits. The cervical segments of the right and left vertebral arteries are within normal limits. The limited visualized lung apices are clear. The surrounding soft tissues and osseous structures are otherwise unremarkable. IMPRESSION: No evidence of acute intracranial hemorrhage, mass effect or hydrocephalus. No evidence of hemodynamically significant intracranial stenosis, proximal occlusion or aneurysm. No evidence of hemodynamically significant cervical stenosis or dissection. All CT scans at this medical facility are performed using dose modulation techniques as appropriate to a performed exam including the following: Automated exposure control was utilized; adjustment of the MA and/or KV according to patient size; and use of iterative reconstruction technique. ATED BY: TIGRE MCKNIGHT MD DICTATED DATE/TIME: 08/14/252226 SIGNED BY: TIGRE MCKNIGHT MD SIGNED DATE/TIME: 08/14/252226 CC: [place] [id number] Ph: [phone] DIAGNOSTIC IMAGING Diagnostic Imaging Report : [id number] Signed PATIENT: FARZANA CASAS ACCT: [id number] UNIT: [id number] : 1980 LOC: ER ROOM / BED: / AGE / SEX: 44 / M ADM STATUS: REG ER SERVICE 55 ORDERING PHYSICIAN: ROS MORA MD PROCEDURE(s): CXRP - CHEST PORTABLE REASON: SOB ORDER NUMBER(s): [id number], ACCESSION NUMBER(s): [id number] EXAM: XY CHEST PORTABLE CLINICAL HISTORY: SOB TECHNIQUE: Single AP view of the chest WID: COMPARISON: None FINDINGS: Lines and tubes: None Chest: The heart size and pulmonary vasculature is within normal limits. No pleural effusion, pneumothorax, or consolidation. The osseous structures are grossly intact. IMPRESSION: 1. No acute cardiopulmonary abnormality. ATED BY: RANJITH GALLO MD DICTATED DATE/TIME: 08/14/252202 SIGNED BY: RANJITH GALLO MD SIGNED DATE/TIME: 08/14/252202 CC: Time of 1ST Reevaluation: 23:00 Reevaluation 1ST: Unchanged Patient Education/Counseling: Diagnosis, Treatment Family Education/Counseling: No Family Present Departure 1 Departure Time of Disposition: 01:00 Impression: Primary Impression: Generalized weakness Disposition: 01 HOME / SELF CARE / HOMELESS Condition: Stable Discharged With: Self Critical Care Note Critical Care Time?: No Stability Stability form required: No Heart Score Heart Score: Heart Score Response (Comments) Value History N/A 0 EKG N/A 0 Age N/A 0 Risk Factors N/A 0 Troponin N/A 0 Total 0 I personally scribed for ROS MORA MD ([email or web address]) on 08/14/25 at 22:46. Electronically submitted by Sid Lee [email or web address]). ROS MORA MD Aug 14, 2025 22:46
[2025-08-15] MEDS ORDERED: ACETAMINOPHEN 325 MG TAB PO PRN
[2025-08-15] MEDS: SODIUM CHLOR 0.9% PF (SALINE LOCK) 10ML VIAL/SYR IV SCH (00:29)
[2025-08-15] MEDS: IOHEXOL 350 MG/ML 100ML IJ ONE (00:30)
[2025-08-15] MEDS: SODIUM CHLORIDE 0.9% 1,000 ML IV ONE (00:33)
--- NOTE | 2025-08-15 00:41 | DVHHPRES ---
History of Present Illness Resident Creating Document: LAMAR NAPOLES History of Present Illness Patient is a 44-year-old male with no significant past medical history presented to [facility] ED with complaint of right-sided weakness and numbness. He reports that symptoms began 3 days ago at approximately 0700 AM upon waking. He describes being able to feel his right side but notes noticeable dragging compared to his baseline. On the same day, 08/11/2025, he presented to the ED and was informed he may have experienced a "baby stroke." However, he left against medical advice (AMA) due to prolonged wait times. The patient returned to the ED due to persistent symptoms. He now reports difficulty moving his right arm above 90 degrees and notes jerking movements while walking. He denies any new or worsening neurological deficits since the initial onset and reports no additional acute symptoms. On examination, the patient was afebrile, tachycardic, and hypertensive with a blood pressure of 185/132 mmHg. Initial laboratory results were unremarkable. Head and neck CT imaging showed no evidence of acute intracranial hemorrhage, mass effect, hydrocephalus, hemodynamically significant intracranial stenosis, proximal occlusion, aneurysm, cervical stenosis, or dissection. The patient was started on IV antibiotics and IV fluids. Patient is admitted for further evaluation and management. Past Medical History none Past Surgical History Right sided nephrectomy Family History: None Smoke: No ALCOHOL: none Drugs: None Lives: with Family Review of Systems Neurological: Weakness, Numbness Allergies: Coded Allergies: Sulfa Antibiotics (Verified Allergy, Unknown, 08/11/25) Medications Current Medications Medications Dose Ordered Sig/Vitaly Route Start Time Stop Time Status Last Admin Dose Admin Sodium Chloride 10 ml Q8HR IV 08/15/25 06:00 08/15/25 00:29 10 ML Acetaminophen 650 mg Q6HP PRN PO 08/15/25 00:00 Exam Vital Signs Vital Signs Date Time Temp Pulse Resp B/P (MAP) Pulse Ox O2 Delivery O2 Flow Rate FiO2 08/14/25 20:47 99.0 103 16 170/130 98 99.0 Exam General Appearance: Cooperative. Well developed. Well nourished. NAD Head Exam: Normal inspection Neck Exam: Normal inspection. Non-tender. Normal alignment Pulmonary/Respiratory: Chest non-tender. Clear bilateral breath sounds, no crackles, no wheezing. Cardiovascular/Chest: Regular rate and rhythm. No murmurs. No JVD. Peripheral Pulses: 2+ Radial (R). 2+ Radial (L). 2+ Pedal (R). 2+ Pedal (L) Abdominal Exam: Normal bowel sounds. Soft. normal abdomen, no visible veins, Nontender. No hepatospenomegaly. No masses Ankle Exam: Negative ankle edema Upper extremities: Decreased strength in the right upper extremity, particularly with shoulder abduction above 90 degrees. Decreased sensation to light touch and pinprick in the right upper extremities. Lower extremities: Right lower extremity demonstrates intermittent involuntary jerking movements. Decreased sensation to light touch and pinprick in the right lower extremities. Neuro/Mental Status: A&O x4. Coherent. Thoughts/Psych: Normal thought pattern. Appropriate mood and affect. Good judgement and insight Skin Exam: Normal inspection. Normal color. Warm. Dry Gait: Unsteady with right leg instability and intermittent jerking; requires assistance for ambulation. Labs/Xrays Labs Test 08/14/25 22:51 08/14/25 21:17 Range/Units Troponin I High Sensitivity 26 </=54 ng/L White Blood Count 9.1 4.4-10.8 10^3/uL Red Blood Count 6.10 H 4.5-5.90 10^6/uL Hemoglobin 16.9 13.5-17.5 g/dL Hematocrit 47.5 41.0-53.0 % Mean Corpuscular Volume 77.8 L 80.0-100.0 fL Mean Corpuscular Hemoglobin 27.7 L 28.0-32.0 pg Mean Corpuscular Hemoglobin Concent 35.5 32.0-36.0 g/dL Red Cell Distribution Width 13.4 11.8-14.3 % Platelet Count 318 140-450 10^3/uL Mean Platelet Volume 7.0 6.9-10.8 fL Neutrophils (%) (Auto) 74.5 37.0-80.0 % Lymphocytes (%) (Auto) 17.7 10.0-50.0 % Monocytes (%) (Auto) 6.8 0.0-12.0 % Eosinophils (%) (Auto) 0.8 0.0-7.0 % Basophils (%) (Auto) 0.2 0.0-2.0 % Neutrophils # (Auto) 6.8 1.6-8.6 10 ^3/uL Lymphocytes # (Auto) 1.6 0.4-5.4 10 ^3/uL Monocytes # (Auto) 0.6 0-1.3 10 ^3/uL Eosinophils # (Auto) 0.1 0-0.8 10 ^3/uL Basophils # (Auto) 0 0-0.2 10 ^3/uL Nucleated Red Blood Cells 0.2 % Prothrombin Time 11.8 9.3-11.8 sec Prothrombin Time INR 1.13 0.9-1.15 Activated Partial Thromboplast Time 30.2 24.5-34.5 SEC Sodium Level 138 # 136-145 mmol/L Potassium Level 3.8 3.5-5.1 mmol/L Chloride Level 102 98-107 mmol/L Carbon Dioxide Level 23 20-31 mmol/L Anion Gap 13 5-15 Blood Urea Nitrogen 17 9-23 mg/dL Creatinine 1.19 0.700-1.30 mg/dL Glomerular Filtration Rate Calc 78 >90 mL/min BUN/Creatinine Ratio 14.3 10.0-20.0 Serum Glucose 81 74-106 mg/dL Calcium Level 9.9 8.7-10.4 mg/dL Magnesium Level 1.9 1.6-2.6 mg/dL Total Bilirubin 1.0 0.2-1.0 mg/dL Aspartate Amino Transferase (AST) 24 13-40 U/L Alanine Aminotransferase (ALT) 21 7-40 U/L Alkaline Phosphatase 68 46-116 U/L Total Protein 8.2 5.7-8.2 g/dL Albumin 4.7 3.2-4.8 g/dL SEPSIS Sepsis Screen Date sepsis recognized/suspect: Aug 14, 2025 Time Sepsis recognized/suspect: 2049 Recent Procedure: No On Antibiotic Therapy: No Respiratory Rate >20: No Heart Rate >90: No Temp<36 C (96.8 F) or >38.3 C: No SBP <90 or MAP <65 mmHG: No New Acute Mental Status Change: No Is the patient on CPAP, BIPAP,: No Physician Orders Chest Portable (08/14/25 20:56) Heplock Iv (08/14/25 20:56) Electrocardigram (08/14/25 20:56) Angio Head/Neck (08/14/25 20:59) Nursing Dysphagia Screen (08/14/25 20:59) Neuro Checks Per Unit Protocol (08/14/25 20:59) Admit (08/14/25 23:51) Allergies (08/14/25:51) Code Status (08/14/25:) Sodium Chloride Lock (Saline Lock Ns) (08/15/25 06:00) Complete Blood Count (08/15/25 04:00) Comprehensive Metabolic Panel (08/15/25 04:00) Cardiac Diet-2gna,Lofat,Lochol (08/15/25 Breakfast) Echo 2d Mode Cardiac Dop (08/14/25:51) Carotid Duplx W Color Dop (08/14/25:51) Condition: Serious (08/14/25:) Acetaminophen Tablet (Tylenol Tablet) (08/15/25 00:00) Stat Ekg For Chest Pain (08/14/25:51) Notify Md Of Changes From Base (08/14/25:) Certified Nurse For 24 Hours (08/14/25:51) Emergency Dysrhythmia Protocol (08/14/25:) Rhythm Strips Once Every Shift (08/14/25 23:51) Brain Head Wo Contrast (08/15/25 00:37) Urinalysis (08/15/25 00:37) Drug Screen (08/15/25 00:37) Aspirin Tablet (08/15/25 00:45) Aspirin Tablet (08/15/25 10:00) Clopidogrel Bisulfate (Plavix) (08/15/25 00:45) Clopidogrel Bisulfate (Plavix) (08/15/25 10:00) Vital Signs Date Time Temp Pulse Resp B/P (MAP) Pulse Ox O2 Delivery O2 Flow Rate FiO2 08/14/25 20:47 99.0 103 16 170/130 98 99.0 Laboratory Tests Test 08/14/25 21:17 White Blood Count 9.1 10^3/uL (4.4-10.8) Medications Medications Dose Ordered Sig/Vitaly Route Start Time Stop Time Status Last Admin Dose Admin Sodium Chloride 10 ml Q8HR IV 08/15/25 06:00 08/15/25 00:29 10 ML Assessment/Plan Assessment/Plan Transient Ischemic Attack Head/Neck CT: No evidence of acute intracranial hemorrhage, mass effect or hyd rocephalus. No evidence of hemodynamically significant intracranial stenosis, proximal occlusion or aneurysm. No evidence of hemodynamically significant cervical stenosis or dissection. CXR: No acute cardiopulmonary abnormality. Neurology on board Carotid duplex pending Echocardiogram pending Aspirin 81 mg po daily Plavix 75 mg po daily Atorvastatin Brain MRI ordered HTN, uncontrolled Nifedipine 30 mg p.o. Hydralazine 10 mg IV q.6 hp Diet : Cardiac diet Goals of care: Full code, discussed for >16 minutes on 08/15/25 Plan discussed with patient Plan discussed with Dr. Sellers Plan discussed with: Patient My Orders Orders - LAMAR NAPOLES Procedure Category Date Status Time Admit ADMIT 08/14/25 Transmitted 23:51 Allergies ELIZA 08/14/25 In Process 23:51 Code Status CODE 08/14/25 Transmitted 23:51 Sodium Chloride Lock PHA 08/15/25 In Process (Saline Lock Ns) 06:00 Complete Blood Count LAB 08/15/25 Logged 04:00 Comprehensive LAB 08/15/25 Logged Metabolic Panel 04:00 Cardiac DIET 08/15/25 Transmitted Diet-2gna,Lofat,Lochol Breakfast Echo 2d Mode Cardiac US 08/14/25 Logged DOP 23:51 Carotid Duplx W Color US 08/14/25 Logged DOP 23:51 Condition: Serious ELIZA 08/14/25 In Process 23:51 Acetaminophen Tablet PHA 08/15/25 In Process (Tylenol Tablet) 00:00 Stat Ekg For Chest ELIZA 08/14/25 In Process Pain 23:51 Notify Md Of Changes ELIZA 08/14/25 In Process From Base 23:51 Certified Nurse For [facility] 08/14/25 In Process 24 Hours 23:51 Emergency Dysrhythmia ELIZA 08/14/25 In Process Protocol 23:51 Rhythm Strips Once [facility] 08/14/25 In Process Every Shift 23:51 Brain Head Wo Contrast MRI 08/15/25 Logged 00:37 Urinalysis LAB 08/15/25 Transmitted 00:37 Drug Screen LAB 08/15/25 Transmitted 00:37 Aspirin Tablet PHA 08/15/25 Logged 00:45 Aspirin Tablet PHA 08/15/25 Logged 10:00 Clopidogrel Bisulfate PHA 08/15/25 Logged (Plavix) 00:45 Clopidogrel Bisulfate PHA 08/15/25 Logged (Plavix) 10:00 LAMAR NAPOLES RESIDENT Aug 15, 2025 00:41 [place] VILLAVICENCIO Aug 15, 2025 06:49
[2025-08-15 00:42] VITALS: PULSE 78; RESP 16; O2SAT 98
[2025-08-15] MEDS: CLOPIDOGREL BISULFATE 75 MG TAB PO ONE (02:47)
[2025-08-15] MEDS: ATORVASTATIN 20 MG TAB PO ONE (02:47)
[2025-08-15] MEDS: hydrALAZINE HCL 20 MG/ML VL IV PRN (06:47)
[2025-08-15 07:40] VITALS: PULSE 98; RESP 17; O2SAT 100
--- NOTE | 2025-08-15 08:57 | DVHINCON2 ---
Date of service: Aug 15, [address] Cheek Reason for Consultation TIA History of Present Illness Mr. Rodriguez reasonably years old not sure left-handed gentleman with a history of obesity, he returned to the [facility] on 08/14/25 with a chief complaint of left-sided weakness numbness. At this time, he is alert and fully oriented, he provided the following history He woke up in the morning on 08/11/2025 with whole right side weakness numbness, in that he is not able to use right arm properly, and he drags the right leg when he walked. He was seen in the [facility] ER the same day, CT brain scan showed evidence of multiple chronic strokes, but he left AMA later Because he did not seen any improvement, he decided returned to the hospital on 08/14/25 He denies headache, chest chest pain, vision changes He denies similar problems previously, he has no history of stroke He snores loud, his family has noticed signs of sleep apnea on him, but his sleep is refreshing, he denies excessive daytime sleepiness or fatigue, he bought a CPAP machine himself and he noticed he sleep was better, and he did not snore when he has used the machine, he stopped using it around 05/2025 because his machine broke down CBC, 08/14/2025: Unremarkable CMP, 08/14/2025: Unremarkable CT head, 08/11/2025: Small hypodense foci within the bilateral basal ganglia and bilateral thalami which may represent lacunar infarcts of unknown chronicity. MRI would be helpful for further evaluation. Severe chronic small-vessel ischemic changes. Superimposed areas of acute infarct can not be excluded (Small hypodense foci within the bilateral basal ganglia and bilateral thalami which may represent lacunar infarcts of unknown chronicity) CTA head, neck, 08/11/2025: No evidence of acute intracranial hemorrhage, mass effect or hydrocephalus. No evidence of hemodynamically significant intracranial stenosis, proximal occlusion or aneurysm. No evidence of hemodynamically significant cervical stenosis or dissection. Past Medical History Obesity. He is not aware of other medical problem but he does not see a doctor Past Surgical History Left kidney injury repair Family History Hypertension, diabetes Social History He has no history of tobacco smoke, drug or alcohol abuse. Smokes marijuana Allergies: Coded Allergies: Sulfa Antibiotics (Verified Allergy, Unknown, 08/11/25) Current Medications Current Medications Medications (Trade) Dose Ordered Sig/Vitaly Route PRN Reason Start Time Stop Time Status Last Admin Sodium Chloride (Saline Lock Ns) 10 ml Q8HR IV 08/15/25 06:00 08/15/25 00:29 Acetaminophen (Tylenol Tablet) 650 mg Q6HP PRN PO PAIN SCALE 1-3 OR TEMP>100.4 08/15/25 00:00 Aspirin 81 mg DAILY PO 08/15/25 10:00 Clopidogrel Bisulfate (Plavix) 75 mg DAILY PO 08/15/25 10:00 Atorvastatin Calcium (Lipitor) 40 mg HS PO 08/15/25 22:00 Hydralazine HCl (Apresoline Injection) 10 mg Q6HP PRN IV SBP>150 08/15/25 02:30 08/15/25 06:47 Review of Systems As above, the other systems are negative Vital Signs Vital Signs Date Time Temp Pulse Resp B/P (MAP) Pulse Ox O2 Delivery O2 Flow Rate FiO2 08/15/25 08:05 98.0 98 16 173/117 (135) 100 98.0 08/15/25 07:40 Room Air* 0 21 Physical Exam GENERAL EXAM: General: the patient is well developed and nourished. No acute distress. HEENT: Normocephalic, neck is supple, no carotid bruits. No mass. RESPIRATORY: Normal respiratory effort with symmetrical lung expansion. Lungs clear to auscultation. CARDIOVASCULAR: Regular rate and rhythm with no murmurs. S1, S2. ABDOMEN: Soft, nontender, normal bowel sound NEUROLOGICAL: MENTAL STATUS: Awake and alert. Oriented to person, place, time and general cir cumstances. Able to give personal history. s SPEECH, LANGUAGE, HIGHER CORTICAL FUNCTION: no aphasia or dysathria. CRANIAL NERVES: #2: Intact visual cole to confrontation. The optic discs were sharp. #3,4,6: Pupils are equal, round and reactive. EOMs full and conjugate. No nystagmus. #5: Facial sensation intact in all three divisions bilaterally. Mandibular strength intact. #7: Facial muscles symmetrical and strength intact. #8: Hearing grossly normal to voice. #9,10: Uvula and soft palate rise in the midline. Swallow and voice are normal. #11: Trapezius and sternomastoid strength intact bilaterally. #12: Tongue midline. No fasciculations or atrophy. SENSATION: Sensation to touch and pinprick is normal. MOTOR: Normal tone in the upper and lower extremity. Normal muscle bulk. No fasciculations. No abnormal movements or posturing. Muscle strength of the major groups in the left extremities is 5/5. Muscle strength of the major groups in the right extremities is: Upper: 3/5. Lower: 3-4/5. REFLEXES: Deep tendon reflexes normal and symmetrical. No pathological reflexes. CEREBELLAR/COORDINATION: Finger to nose is normal in the left arm GAIT/STATION: deferred. Labs/Diagnostic Data Labs Test 08/14/25 22:51 08/14/25 21:17 Range/Units Troponin I High Sensitivity 26 </=54 ng/L White Blood Count 9.1 4.4-10.8 10^3/uL Red Blood Count 6.10 H 4.5-5.90 10^6/uL Hemoglobin 16.9 13.5-17.5 g/dL Hematocrit 47.5 41.0-53.0 % Mean Corpuscular Volume 77.8 L 80.0-100.0 fL Mean Corpuscular Hemoglobin 27.7 L 28.0-32.0 pg Mean Corpuscular Hemoglobin Concent 35.5 32.0-36.0 g/dL Red Cell Distribution Width 13.4 11.8-14.3 % Platelet Count 318 140-450 10^3/uL Mean Platelet Volume 7.0 6.9-10.8 fL Neutrophils (%) (Auto) 74.5 37.0-80.0 % Lymphocytes (%) (Auto) 17.7 10.0-50.0 % Monocytes (%) (Auto) 6.8 0.0-12.0 % Eosinophils (%) (Auto) 0.8 0.0-7.0 % Basophils (%) (Auto) 0.2 0.0-2.0 % Neutrophils # (Auto) 6.8 1.6-8.6 10 ^3/uL Lymphocytes # (Auto) 1.6 0.4-5.4 10 ^3/uL Monocytes # (Auto) 0.6 0-1.3 10 ^3/uL Eosinophils # (Auto) 0.1 0-0.8 10 ^3/uL Basophils # (Auto) 0 0-0.2 10 ^3/uL Nucleated Red Blood Cells 0.2 % Prothrombin Time 11.8 9.3-11.8 sec Prothrombin Time INR 1.13 0.9-1.15 Activated Partial Thromboplast Time 30.2 24.5-34.5 SEC Sodium Level 138 # 136-145 mmol/L Potassium Level 3.8 3.5-5.1 mmol/L Chloride Level 102 98-107 mmol/L Carbon Dioxide Level 23 20-31 mmol/L Anion Gap 13 5-15 Blood Urea Nitrogen 17 9-23 mg/dL Creatinine 1.19 0.700-1.30 mg/dL Glomerular Filtration Rate Calc 78 >90 mL/min BUN/Creatinine Ratio 14.3 10.0-20.0 Serum Glucose 81 74-106 mg/dL Calcium Level 9.9 8.7-10.4 mg/dL Magnesium Level 1.9 1.6-2.6 mg/dL Total Bilirubin 1.0 0.2-1.0 mg/dL Aspartate Amino Transferase (AST) 24 13-40 U/L Alanine Aminotransferase (ALT) 21 7-40 U/L Alkaline Phosphatase 68 46-116 U/L Total Protein 8.2 5.7-8.2 g/dL Albumin 4.7 3.2-4.8 g/dL Assessment Left hemiparesis, paresthesia to rule out acute stroke Multiple chronic sided strokes Obesity Sleep-related breathing disorder Plan/Recommendation Monitoring Supportive treatment Telemetry UDS Lipid profile MRI head JASMYNE Plavix 75 mg daily for 21 days Aspirin 81 mg daily Lipitor 40 mg daily APAP in the hospital Weight control Hypersomnia precautions discussed Further address his sleep-related breathing disorder as outpatient. He has been advised to follow up with me on discharge Progress: Poor This medical document was created using an electronic medical record system with [employer] dictation system. Although this document has been carefully reviewed, there may still be some phonetic and typographical errors. These are as are purely typographical due to imperfections of the software programs, and do not reflect any compromise in the patient's medical care. Plan discussed with: Patient, Other EMILY COOK MD Aug 15, 2025 08:57
--- NOTE | 2025-08-15 09:48 | DVH ---
Carotid Duplex Date: 08/15/2025 09:01 AM Clinical History: TIA Comparison: CT ANGIO HEAD/NECK on DOS: 08/14/25 Technique: Duplex Doppler evaluation of the extracranial carotid and vertebral arteries including col or Doppler and spectral/pulsed waveform analysis was performed. Findings: Velocities and ratios within normal limits. IMPRESSION: No hemodynamically significant stenosis noted in the right carotid system. No hemodynamically significant stenosis noted in the left carotid system. Reference: Radiology 2003; [id number]
[2025-08-15] MEDS: CLOPIDOGREL BISULFATE 75 MG TAB PO SCH (10:00)
[2025-08-15] MEDS ORDERED: LORazepam 2MG/ML-1ML VIAL IV PRN (10:00)
[2025-08-15 10:11] LABS: Urine Protein, UAD 1+ (Negative)
[2025-08-15 10:17] LABS: Cannabinoid Screen, Urine Pos (NEGATIVE)
[2025-08-15 10:24] LABS: Amphetamine Screen, Urine Neg (NEGATIVE); Barbiturate Scree,Urine Neg (NEGATIVE); Benzodiazephine Screen, Urine Neg (NEGATIVE); Cocaine Screen, Urine Neg (NEGATIVE); Opiate Scree,Urine Neg (NEGATIVE); Phencyclidine Screen, Urine Neg (NEGATIVE)
[2025-08-15 10:36] VITALS: BP 173/117; PULSE 98; RESP 16; TEMP 98; O2SAT 100
--- NOTE | 2025-08-15 10:56 | DVH ---
MRI BRAIN HEAD WO CONTRAST INDICATION: TIA EXAM DATE: 08/15/2025 09:55 AM COMPARISON: CT ANGIO HEAD/NECK on DOS: 08/14/25, CT HEAD WITHOUT CONTRAST on DOS: 08/11/25 PROCEDURE: Using a 1.5 Blessing scanner, multisequence multiplanar imaging of the brain was obtained. FINDINGS: Foci of diffusion restriction in the left medulla could be an acute infarct. Sulcal and david tricular prominence with nonspecific white matter changes present. The brain otherwise shows normal m orphology and signal characteristics. No abnormal susceptibility hypointensity is present. The ventr icles are normal in size. The midline structures are intact. The major intracranial flow voids are pr esent. The aerated spaces are normal. The orbital contents and extracranial soft tissues appear paulette l. IMPRESSION: Foci of diffusion restriction in the left medulla could be an acute infarct. Critical Result: Infarct Findings discussed with at 08/15/2025 10:47 AM and acknowledged receipt and understanding of the fin dings.
[2025-08-15 11:24] LABS: Hematocrit 48.9 % (41.0-53.0); Hemoglobin 17.0 g/dL (13.5-17.5); Mean Corpuscular Hemoglobin 27.1 pg (28.0-32.0); Mean Corpuscular Volume 78.1 fL (80.0-100.0); Nucleated Red Blood Cells % 0.0 %
[2025-08-15 11:36] LABS: Alanine Aminotransferase 19 U/L (7-40); Albumin 4.6 g/dL (3.2-4.8); Alkaline Phosphatase 68 U/L (46-116); Anion Gap 15 (5-15); BUN/Creatinine Ratio 14.6 (10.0-20.0); Bilirubin, Total 1.0 mg/dL (0.2-1.0); Blood Urea Nitrogen 14 mg/dL (9-23); Calcium 9.4 mg/dL (8.7-10.4); Chloride 103 mmol/L (98-107); Glucose 83 mg/dL (74-106); Potassium 3.7 mmol/L (3.5-5.1); Sodium 138 mmol/L (136-145); Total Protein 8.1 g/dL (5.7-8.2)
[2025-08-15 12:02] LABS: Carbon Dioxide 20 mmol/L (20-31)
[2025-08-15 12:29] LABS: Triglycerides 94 mg/dL (< 150)
[2025-08-15 12:31] LABS: Cholesterol 139 mg/dL (< 200)
[2025-08-15 12:33] LABS: HDL Cholesterol 35 mg/dL (40-59)
--- NOTE | 2025-08-15 14:47 | DVHINCON2 ---
HEBER CABAN PAN SHOVER 08/15/25 1447: Date Seen: Aug 15, 2025 Referring Physician MD Ben Reason for Consultation JASMYNE evaluation History of Present Illness This is a 44-year-old male patient who presents to the emergency room with chief complaint of right-sided weakness that began on 08/12/2025. The patient initially came to the emergency room but then left against medical advice due to long wait times. He returns for the same symptoms. During this admission, a brain MRI revealed foci of diffusion restriction in the left medulla, could be an acute infarct. Cardiology has been consulted at this time for a transesophageal echocardiogram. No twelve lead electrocardiogram was done during this visit. Patient denies any cardiac symptoms such as chest pain, palpitations, shortness of breath, or dizziness. The patient is in normal sinus rhythm on plumber cub at time of assessment. No arrhythmias seen on event monitor. Significant past medical history includes hypertension, TIA, and obesity. Of note, the patient came in with blood pressure readings as high as 191/126. He denies taking any prescribed antihypertensives. Past Medical History Past medical history reviewed. No other significant than mentioned above. Past Surgical History Denies Family History Family history reviewed. Social History Patient states he drinks approximately eight beers and two shots per week Patient smokes a marijuana pin Denies tobacco use Allergies: Coded Allergies: Sulfa Antibiotics (Verified Allergy, Unknown, 08/11/25) Home Meds Denies taking any prescribed medications Current Medications Current Medications Medications (Trade) Dose Ordered Sig/Vitaly Route PRN Reason Start Time Stop Time Status Last Admin Sodium Chloride (Saline Lock Ns) 10 ml Q8HR IV 08/15/25 06:00 08/15/25 14:05 Acetaminophen (Tylenol Tablet) 650 mg Q6HP PRN PO PAIN SCALE 1-3 OR TEMP>100.4 08/15/25 00:00 Aspirin 81 mg DAILY PO 08/15/25 10:00 08/15/25 10:00 Clopidogrel Bisulfate (Plavix) 75 mg DAILY PO 08/15/25 10:00 08/15/25 10:00 Atorvastatin Calcium (Lipitor) 40 mg HS PO 08/15/25 22:00 Hydralazine HCl (Apresoline Injection) 10 mg Q6HP PRN IV SBP>150 08/15/25 02:30 08/15/25 06:47 Lorazepam (Ativan Inj) 1 mg ONCE PRN IV MRI 08/15/25 10:00 Review of Systems Constitutional: No symptom reported Ears, Nose, & Throat: No symptom reported Eyes: No symptom reported Neurological: No symptoms reported Pulmonary/Respiratory: No symptoms reported Cardiovascular: No symptom reported Gastrointestinal: No symptom reported Genitourinary: No symptom reported Musculoskeletal: Right-sided weakness Skin: No symptom reported Psychiatric: No symptom reported Endocrine: No symptom reported Hematologic/Lymphatic: No symptom reported Vital Signs Vital Signs Date Time Temp Pulse Resp B/P (MAP) Pulse Ox O2 Delivery O2 Flow Rate FiO2 08/15/25 12:00 105 08/15/25 11:12 98.2 16 153/102 (119) 99 98.2 08/15/25 10:36 0.0 21 08/15/25 07:40 Room Air* Physical Exam General Appearance: Cooperative. Morbidly obese Pulmonary/Respiratory: Clear, bilateral breaths sounds. Cardiovascular/Chest: Regular rate and rhythm. Peripheral Pulses: 2+ Radial (R). 2+ Radial (L). 2+ Pedal (R). 2+ Pedal (L) Abdominal Exam: Normal bowel sounds. Ankle Exam: Negative ankle edema Lower extremities: Negative lower extremity edema Neuro/Mental Status: A/OX4, coherent. Thoughts/Psych: Normal thought pattern. Appropriate mood and affect. Good judgment and insight. Appearance: No acute distress. Skin Exam: Normal inspection. Normal color. Warm and dry. Labs/Diagnostic Data Labs Test 08/15/25 10:28 08/15/25 09:39 08/14/25 22:51 08/14/25 21:17 Range/Units White Blood Count 8.6 4.4-10.8 10^3/uL Red Blood Count 6.26 H 4.5-5.90 10^6/uL Hemoglobin 17.0 13.5-17.5 g/dL Hematocrit 48.9 41.0-53.0 % Mean Corpuscular Volume 78.1 L 80.0-100.0 fL Mean Corpuscular Hemoglobin 27.1 L 28.0-32.0 pg Mean Corpuscular Hemoglobin Concent 34.7 32.0-36.0 g/dL Red Cell Distribution Width 13.0 11.8-14.3 % Platelet Count 306 140-450 10^3/uL Mean Platelet Volume 7.0 6.9-10.8 fL Neutrophils (%) (Auto) 74.3 37.0-80.0 % Lymphocytes (%) (Auto) 18.2 10.0-50.0 % Monocytes (%) (Auto) 6.4 0.0-12.0 % Eosinophils (%) (Auto) 0.8 0.0-7.0 % Basophils (%) (Auto) 0.3 0.0-2.0 % Neutrophils # (Auto) 6.4 1.6-8.6 10 ^3/uL Lymphocytes # (Auto) 1.6 0.4-5.4 10 ^3/uL Monocytes # (Auto) 0.5 0-1.3 10 ^3/uL Eosinophils # (Auto) 0.1 0-0.8 10 ^3/uL Basophils # (Auto) 0 0-0.2 10 ^3/uL Nucleated Red Blood Cells 0.0 % Sodium Level 138 136-145 mmol/L Potassium Level 3.7 3.5-5.1 mmol/L Chloride Level 103 98-107 mmol/L Carbon Dioxide Level 20 20-31 mmol/L Anion Gap 15 5-15 Blood Urea Nitrogen 14 9-23 mg/dL Creatinine 0.96 0.700-1.30 mg/dL Glomerular Filtration Rate Calc 101 >90 mL/min BUN/Creatinine Ratio 14.6 10.0-20.0 Serum Glucose 83 74-106 mg/dL Hemoglobin A1c 5.3 <5.7 % A1C Calcium Level 9.4 8.7-10.4 mg/dL Total Bilirubin 1.0 0.2-1.0 mg/dL Aspartate Amino Transferase (AST) 26 13-40 U/L Alanine Aminotransferase (ALT) 19 7-40 U/L Alkaline Phosphatase 68 46-116 U/L Total Protein 8.1 5.7-8.2 g/dL Albumin 4.6 3.2-4.8 g/dL Triglycerides Level 94 < 150 mg/dL Cholesterol Level 139 < 200 mg/dL LDL Cholesterol 96 < 100 mg/dL HDL Cholesterol 35 L 40-59 mg/dL Urine Color Yellow Yellow Urine Clarity Clear Clear Urine pH 5.5 5.0-9.0 Urine Specific [place] > 1.050 H 1.001-1.035 Urine Protein 1+ H Negative Urine Ketones 3+ H Negative Urine Blood Trace H Negative /uL Urine Nitrite Negative Negative Urine Bilirubin Negative Negative Urine Urobilinogen Normal Negative mg/dL Urine Leukocyte Esterase Negative Negative /uL Urine RBC 2 0 - 3 /hpf Urine Microscopic WBC < 1 0-3 /HPF Urine Squamous Epithelial Cells Few <5 /hpf Urine Bacteria None seen None Seen /hpf Urine Mucus Few None Seen Urine Glucose Normal Normal mg/dL Urine Opiates Screen Neg NEGATIVE Urine Fentanyl Screen Neg NEGATIVE Urine Barbiturates Screen Neg NEGATIVE Urine Phencyclidine Screen Neg NEGATIVE Urine Amphetamines Screen Neg NEGATIVE Urine Benzodiazepines Screen Neg NEGATIVE Urine Cocaine Screen Neg NEGATIVE Urine Cannabinoids Screen Pos NEGATIVE Troponin I High Sensitivity 26 </=54 ng/L Prothrombin Time 11.8 9.3-11.8 sec Prothrombin Time INR 1.13 0.9-1.15 Activated Partial Thromboplast Time 30.2 24.5-34.5 SEC Magnesium Level 1.9 1.6-2.6 mg/dL Assessment Acute CVA, rule out cardiac etiology Rule out structural heart disease Hypertensive emergency Rule out cardiac arrhythmia Alcohol use Morbidly obese Plan/Recommendation We will continue with the following plan/recommendations (Dr. Goss): Patient seen and examined at bedside with . Given clinical findings of acute CVA, the patient was offered a transesophageal echocardiogram. Procedure discussed with the patient full detail. All questions answered. The patient is agreeable. We will schedule the patient for a transesophageal echocardiogram with bubble study on 08/16/2025 at soonest availability. In the meantime, continue with permissive hypertension as per Neurology recommendations. Continue with statin therapy and lipid-lowering agent. Continue with close cardiac surveillance and notify cardiology team immediately for any ECG changes or arrhythmias. Thank you for allowing us to care for this patient. Please call with any questions or concerns. Critical care time spent: 44 minutes This medical document was created using an electronic medical record system with voice recognition software and computerized dictation system. Although this document has been carefully reviewed, there might still be some phonetic and typographical errors. Occasional wrong-word or ``sound-alike substitutions may have occurred due to the inherent limitations of voice recognition software. These areas are purely typographical due to imperfections of the software programs and do not reflect any compromise in the patient's medical care. Please read the chart carefully and recognize, using context, where these substitutions have occurred. Plan discussed with: Patient NYHA Physical activity limitations: NA Date of Service: Aug 15, 2025 Billing Provider: HEBER CABAN Cardiology Common Codes: [id number] INP/OBS CARE (High) Cardiology Consultation Codes: [id number] CONSULT <45MIN COY GOSS MD 08/16/25 1728: Allergies: Coded Allergies: Sulfa Antibiotics (Verified Allergy, Unknown, 08/11/25) Plan/Recommendation PT SEEN AND EXAMINED WITH CV TEAM AGREE WITH RESIDENT ASSESSMENT AND PLAN JASMYNE PLANNED CVA/TIA PER NEURO ABNORMAL MRI HEBER CABAN Aug 15, 2025 14:47 COY GOSS MD Aug 16, 2025 17:28
--- NOTE | 2025-08-15 16:08 | DVHPNRES ---
Progress Note Date Seen: Aug 15, 2025 Resident Creating Document: SALVADOR CASTILLO RESIDENT Medical Necessity Reason Pt with a Central, PICC or Fol: No Subjective Review of Systems Brief history on admission: Patient is a 44-year-old male with no significant past medical history presented to [facility] ED with complaint of right-sided weakness and numbness. He reports that symptoms began 3 days ago at approximately 0700 AM upon waking. He describes being able to feel his right side but notes noticeable dragging compared to his baseline. On the same day, 08/11/2025, he presented to the ED and was informed he may have experienced a "baby stroke." However, he left against medical advice (AMA) due to prolonged wait times. The patient returned to the ED due to persistent symptoms. He now reports difficulty moving his right arm above 90 degrees. He denies any new or worsening neurological deficits since the initial onset and reports no additional acute symptoms. On examination, the patient was afebrile, tachycardic, and hypertensive with a blood pressure of 185/132 mmHg. Initial laboratory results were unremarkable. Head and neck CT imaging showed no evidence of acute intracranial hemorrhage, mass effect, hydrocephalus, hemodynamically significant intracranial stenosis, proximal occlusion, aneurysm, cervical stenosis, or dissection. The patient was started on IV antibiotics and IV fluids. Patient admitted for further evaluation and management. 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 Full code. Home medication: None Allergic history: Sulfa antibiotics ROS: Constitutional: Denies weight loss, fever and chills. HEENT: Denies changes in vision and hearing. Respiratory: Denies shortness of breath and cough Cardiovascular: Denies chest discomfort or palpitations GI: Denies abdominal pain, nausea, vomiting and diarrhea. : Denies dysuria and urinary frequency. Musculoskeletal: Denies myalgias and joint pain Skin: Denies rash and pruritus. Neurological: Right-sided numbness, tingling 08/15/2025: Patient was examined at bedside today. Patient continues to complain of weakness of right arm and leg. Objective vital signs Vital Sign Date Time Temp Pulse Resp B/P (MAP) Pulse Ox O2 Delivery O2 Flow Rate FiO2 08/15/25 14:00 102 18 155/94 (114) 96 08/15/25 11:12 98.2 98.2 08/15/25 10:36 0.0 21 08/15/25 07:40 Room Air* medications Current Medications Medications Dose Ordered Sig/Vitaly Route Start Time Stop Time Status Last Admin Dose Admin Sodium Chloride 10 ml Q8HR IV 08/15/25 06:00 08/15/25 14:05 10 ML Acetaminophen 650 mg Q6HP PRN PO 08/15/25 00:00 Aspirin 81 mg DAILY PO 08/15/25 10:00 08/15/25 10:00 81 MG Clopidogrel Bisulfate 75 mg DAILY PO 08/15/25 10:00 08/15/25 10:00 75 MG Atorvastatin Calcium 40 mg HS PO 08/15/25 22:00 Hydralazine HCl 10 mg Q6HP PRN IV 08/15/25 02:30 Hold 08/15/25 06:47 10 MG Lorazepam 1 mg ONCE PRN IV 08/15/25 10:00 Examination General: Patient alert and oriented in person, place and time. Patient following commands. HEENT: Normocephalic, atraumatic, moist mucous membranes Respiratory/pulmonary: Clear lungs bilaterally, vesicular murmurs present in almost all lung cole, no associated crackles or wheezes. Cardiovascular: Normal heart sounds S1 and S2 with no associated murmurs Abdomen: Abdomen nondistended, there is no pain to palpation in any of the abdominal quadrants, no palpable masses. Extremities: There is no peripheral edema present at the lower extremities. Peripheral Pulses: 3+ Radial (R). 3+ Radial (L). 3+ Dorsalis pedis (R). 3+ Dorsalis pedis(L) Skin: No rashes or pruritus, there is no sacral edema present at this time. Neurological: Reduced strength in right side, motor strength 3/5 right hand, 4/5 in all, 2/5 in feet, 4/5 in legs. Sensory strength normal. Left extremity is normal sensory strength. laboratory and microbiology Laboratory Tests 08/15/25 10:28 Test 08/15/25 10:28 Range/Units Serum Glucose 83 74-106 mg/dL Problem List/Assessment/Plan Problem List/Assessment/Plan Transient Ischemic Attack Acute stroke, likely Multiple chronic strokes Head/Neck CT: No evidence of acute intracranial hemorrhage, mass effect or hydrocephalus. No evidence of hemodynamically significant intracranial stenosis, proximal occlusion or aneurysm. No evidence of hemodynamically significant cervical stenosis or dissection. CXR: No acute cardiopulmonary abnormality. Brain MRI shows Foci of diffusion restriction in the left medulla could be an acute infarct. Carotid duplex negative for stenosis Echocardiogram pending Aspirin 81 mg po daily Plavix 75 mg po daily Atorvastatin 40 mg p.o. daily Neurology advised CARMELO Hypertensive urgency, resolving P.o. Nicardipine once. Discontinued Hydralazine 10 mg IV q.6 hp Obesity class 3 Sleep-related breathing disorder BMI 43 Counseled on lifestyle and diet Monitor for CARLEY complication, consider CPAP if needed DIET: Cardiac DVT PROPHYLAXIS: Lovenox GI PROPHYLAXIS: Protonix CODE STATUS: Goals of care discussed with patient at bedside for more than 15 minutes. Full code DISPOSITION: Telemetry This medical document was created using an electronic medical record system with [employer] direct computerized dictation system. Although this document has been carefully reviewed, there may still be some phonetic and typographical errors. These areas are purely typographical due to imperfections of the software programs, and do not reflect any compromise in the patient's medical care. Patient's status and plan discussed with the patient. Case discussed with Dr. Sorenson Plan discussed with: Patient, Other (Nurses) My Orders My Orders Orders - SALVADOR CASTILLO Procedure Category Date Status Time Pt Request For Service PT 08/15/25 Logged 14:24 Echo Carmelo Complete BD 08/15/25 Transmitted 14:34 * Cardiology Consult CONS 08/15/25 Transmitted 14:35 SALVADOR CASTILLO Aug 15, 2025 16:08
[2025-08-15] MEDS: PANTOPRAZOLE 40 MG TAB PO ONE (16:39)
[2025-08-15] MEDS: ENOXAPARIN SOD 40 MG/0.4 ML SYRINGE SC ONE (16:40)
[2025-08-15 22:28] VITALS: BP 163/115; PULSE 84; RESP 19; TEMP 98.2; O2SAT 100
[2025-08-15 22:35] VITALS: PULSE 88; O2SAT 100
[2025-08-15] MEDS: ATORVASTATIN 20 MG TAB PO SCH (23:45)
[2025-08-16] VITALS (18 sets, daily range): BP systolic 133–164; BP diastolic 10–114; PULSE 72–137; RESP 14–19; TEMP 98–98.2; O2SAT 95–100
[2025-08-16] MEDS: hydrALAZINE HCL 20 MG/ML VL IV PRN
[2025-08-16] MEDS ORDERED: PANTOPRAZOLE 40 MG TAB PO SCH (06:00)
--- NOTE | 2025-08-16 06:05 | ECG ---
[facility] Test Date: 2025-08-16 Test Time: 06:00:47 Pat Name: FARZANA CASAS Department: Room: [facility] A Gender: M Fun House Attendant: BRIANNE Truong : 1980 Requested By: COY GOSS Order Number: [id number] Reading MD: Measurements Intervals [place] Rate: 93 P: 42 MA: 160 QRS: -40 QRSD: 96 T: 110 QT: 380 QTc: 473 Interpretive Statements Sinus rhythm Left axis deviation Abnormal T, consider ischemia, lateral leads Minimal ST elevation, anterior leads Please click the below link to view image of tracing.
[2025-08-16 06:06] LABS: Hematocrit 47.3 % (41.0-53.0); Hemoglobin 16.7 g/dL (13.5-17.5); Mean Corpuscular Hemoglobin 27.7 pg (28.0-32.0); Mean Corpuscular Volume 78.4 fL (80.0-100.0); Nucleated Red Blood Cells % 0.1 %
[2025-08-16 06:21] LABS: Calcium 9.7 mg/dL (8.7-10.4); Chloride 104 mmol/L (98-107); Sodium 141 mmol/L (136-145)
[2025-08-16 06:22] LABS: Anion Gap 15 (5-15); Carbon Dioxide 22 mmol/L (20-31)
[2025-08-16 06:28] LABS: Glucose 82 mg/dL (74-106); Potassium 3.5 mmol/L (3.5-5.1)
[2025-08-16 07:24] LABS: BUN/Creatinine Ratio 15.0 (10.0-20.0); Blood Urea Nitrogen 16 mg/dL (9-23)
[2025-08-16] MEDS: ENOXAPARIN SOD 40 MG/0.4 ML SYRINGE SC SCH (10:00)
--- NOTE | 2025-08-16 10:00 | DVHPNRES ---
Progress Note Date Seen: Aug 16, 2025 Resident Creating Document: SALVADOR CASTILLO RESIDENT Medical Necessity Reason Pt with a Central, PICC or Fol: No Subjective Review of Systems Brief history on admission: Patient is a 44-year-old male with no significant past medical history presented to [facility] ED with complaint of right-sided weakness and numbness. He reports that symptoms began 3 days ago at approximately 0700 AM upon waking. He describes being able to feel his right side but notes noticeable dragging compared to his baseline. On the same day, 08/11/2025, he presented to the ED and was informed he may have experienced a "baby stroke." However, he left against medical advice (AMA) due to prolonged wait times. The patient returned to the ED due to persistent symptoms. He now reports difficulty moving his right arm above 90 degrees. He denies any new or worsening neurological deficits since the initial onset and reports no additional acute symptoms. On examination, the patient was afebrile, tachycardic, and hypertensive with a blood pressure of 185/132 mmHg. Initial laboratory results were unremarkable. Head and neck CT imaging showed no evidence of acute intracranial hemorrhage, mass effect, hydrocephalus, hemodynamically significant intracranial stenosis, proximal occlusion, aneurysm, cervical stenosis, or dissection. The patient was started on IV antibiotics and IV fluids. Patient admitted for further evaluation and management. 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 Full code. Home medication: None Allergic history: Sulfa antibiotics ROS: Constitutional: Denies weight loss, fever and chills. HEENT: Denies changes in vision and hearing. Respiratory: Denies shortness of breath and cough Cardiovascular: Denies chest discomfort or palpitations GI: Denies abdominal pain, nausea, vomiting and diarrhea. : Denies dysuria and urinary frequency. Musculoskeletal: Denies myalgias and joint pain Skin: Denies rash and pruritus. Neurological: Right-sided numbness, tingling 08/15/2025: Patient was examined at bedside today. Patient continues to complain of weakness of right arm and leg. 08/16/2025: The patient was examined at bedside today. Patient continues to complain of weakness on the right side of body, no new complaints. Cardiology was consulted yesterday for CARMELO, scheduled for CARMELO today. Objective vital signs Vital Sign Date Time Temp Pulse Resp B/P (MAP) Pulse Ox O2 Delivery O2 Flow Rate FiO2 08/16/25 08:52 156/104 08/16/25 08:42 98.0 88 17 100 98.0 08/16/25 08:15 Room Air 0.0 08/16/25 08:15 21 Total Intake and Output 08/15/25 08/15/25 08/16/25 15:00 23:00 07:00 Intake Total 0 ml Balance 0 ml medications Current Medications Medications Dose Ordered Sig/Vitaly Route Start Time Stop Time Status Last Admin Dose Admin Sodium Chloride 10 ml Q8HR IV 08/15/25 06:00 08/16/25 06:00 10 ML Acetaminophen 650 mg Q6HP PRN PO 08/15/25 00:00 Aspirin 81 mg DAILY PO 08/15/25 10:00 08/15/25 10:00 81 MG Clopidogrel Bisulfate 75 mg DAILY PO 08/15/25 10:00 08/15/25 10:00 75 MG Atorvastatin Calcium 40 mg HS PO 08/15/25 22:00 08/15/25 23:45 40 MG Lorazepam 1 mg ONCE PRN IV 08/15/25 10:00 Enoxaparin Sodium 40 mg DAILY SC 08/16/25 10:00 Hydralazine HCl 10 mg Q6HP PRN IV 08/16/25 00:00 08/16/25 08:52 10 MG Examination General: Patient alert and oriented in person, place and time. Patient following commands. HEENT: Normocephalic, atraumatic, moist mucous membranes Respiratory/pulmonary: Clear lungs bilaterally, vesicular murmurs present in almost all lung cole, no associated crackles or wheezes. Cardiovascular: Normal heart sounds S1 and S2 with no associated murmurs Abdomen: Abdomen nondistended, there is no pain to palpation in any of the abdominal quadrants, no palpable masses. Extremities: There is no peripheral edema present at the lower extremities. Peripheral Pulses: 3+ Radial (R). 3+ Radial (L). 3+ Dorsalis pedis (R). 3+ Dorsalis pedis(L) Skin: No rashes or pruritus, there is no sacral edema present at this time. Neurological: Reduced strength in right side, motor strength 3/5 right hand, 4/5 in all, 2/5 in feet, 4/5 in legs. Sensory strength normal. Left extremity is normal sensory strength. laboratory and microbiology Laboratory Tests 08/16/25 05:08 Test 08/16/25 05:08 Range/Units Serum Glucose 82 74-106 mg/dL Problem List/Assessment/Plan Problem List/Assessment/Plan Transient Ischemic Attack Acute stroke with acute medullary infarct Multiple chronic strokes Head/Neck CT: No evidence of acute intracranial hemorrhage, mass effect or hydrocephalus. No evidence of hemodynamically significant intracranial stenosis, proximal occlusion or aneurysm. No evidence of hemodynamically significant cervical stenosis or dissection. CXR: No acute cardiopulmonary abnormality. Brain MRI shows Foci of diffusion restriction in the left medulla could be an acute infarct. Carotid duplex negative for stenosis Aspirin 81 mg po daily Plavix 75 mg po daily Atorvastatin 40 mg p.o. daily Neurology advised CARMELO CARMELO showed LVEF 60%, moderate LVH, enlarged left atrium, mild MR, mild TR. No [id number] shunt seen, small left atrial appendage without thrombus. Physical therapy consulted for discharge planning Hypertensive urgency, resolving P.o. Nicardipine given once. Hydralazine 10 mg IV q.6 hp Losartan 25 mg p.o. daily Obesity class 3 Sleep-related breathing disorder Sleep apnea BMI 43 Counseled on lifestyle and diet BiPAP on sleep apnea Substance abuse Toxicology screen positive for marijuana use. Patient counseled for cessation at bedside for more than 12 minutes. DIET: Cardiac DVT PROPHYLAXIS: Lovenox GI PROPHYLAXIS: Protonix CODE STATUS: Goals of care discussed with patient at bedside for more than 28 minutes. Full code DISPOSITION: Telemetry This medical document was created using an electronic medical record system with M*[employer] direct computerized dictation system. Although this document has been carefully reviewed, there may still be some phonetic and typographical errors. These areas are purely typographical due to imperfections of the software programs, and do not reflect any compromise in the patient's medical care. Patient's status and plan discussed with the patient. Case discussed with Dr. Sorenson Plan discussed with: Patient, Other (Nurses) My Orders My Orders Orders - SALVADOR CASTILLO RESIDENT Procedure Category Date Status Time Pt Request For Service PT 08/15/25 Logged 14:24 Echo Carmelo Complete BD 08/15/25 Transmitted 14:34 * Cardiology Consult CONS 08/15/25 Transmitted 14:35 Enoxaparin Sodium PHA 08/16/25 In Process (Lovenox) 10:00 Pt Request For Service PT 08/16/25 Logged 09:43 Date of Service: Aug 16, 2025 Billing Provider: CHEN SORENSON MD Common Visit Codes: [id number] INP/OBS CARE(HIGH) SALVADOR CASTILLO RESIDENT Aug 16, 2025 10:00
--- NOTE | 2025-08-16 10:05 | DVHPN2 ---
Progress Note - Dictate Date Seen: Aug 16, 2025 Medical Necessity Reason Pt with a Central, PICC or Fol: No Subjective Mr. Rodriguez reasonably years old not sure left-handed gentleman with a history of obesity, he returned to the [facility] on 08[facility]14[facility]25 with a chief c omplaint of left-sided weakness numbness I have seen and examined the patient, nurse, he is doing fine, fully oriented, no new complaints APAP overnight improved his sleep UDS, 08/15/2025: Cannabinoids CBC, 08/14/2025: Unremarkable CMP, 08/14/2025: Unremarkable TG/HDL/LDL/HDL, 08/15/2025: 94/139/96/35 CT head, 08/11/2025: Small hypodense foci within the bilateral basal ganglia and bilateral thalami which may represent lacunar infarcts of unknown chronicity. MRI would be helpful for further evaluation. Severe chronic small-vessel ischemic changes. Superimposed areas of acute infarct can not be excluded (Small hypodense foci within the bilateral basal ganglia and bilateral thalami which may represent lacunar infarcts of unknown chronicity) CTA head, neck, 08/11/2025: No evidence of acute intracranial hemorrhage, mass effect or hydrocephalus. No evidence of hemodynamically significant intracranial stenosis, proximal occlusion or aneurysm. No evidence of hemodynamically significant cervical stenosis or dissection MRI head, 08/15/2025: Foci of diffusion restriction in the left medulla could be an acute infarct (I saw evidence suggestive of bilateral lacunar strokes in the hemispheres vital signs Vital Sign Date Time Temp Pulse Resp B/P (MAP) Pulse Ox O2 Delivery O2 Flow Rate FiO2 08/16/25 08:52 156/104 08/16/25 08:42 98.0 88 17 100 98.0 08/16/25 08:15 Room Air 0.0 08/16/25 08:15 21 Total Intake and Output 08/15/25 08/15/25 08/16/25 15:00 23:00 07:00 Intake Total 0 ml Balance 0 ml medications Current Medications Medications Dose Ordered Sig/Vitaly Route Start Time Stop Time Status Last Admin Dose Admin Sodium Chloride 10 ml Q8HR IV 08/15/25 06:00 08/16/25 06:00 10 ML Acetaminophen 650 mg Q6HP PRN PO 08/15/25 00:00 Aspirin 81 mg DAILY PO 08/15/25 10:00 08/15/25 10:00 81 MG Clopidogrel Bisulfate 75 mg DAILY PO 08/15/25 10:00 08/15/25 10:00 75 MG Atorvastatin Calcium 40 mg HS PO 08/15/25 22:00 08/15/25 23:45 40 MG Lorazepam 1 mg ONCE PRN IV 08/15/25 10:00 Enoxaparin Sodium 40 mg DAILY SC 08/16/25 10:00 Hydralazine HCl 10 mg Q6HP PRN IV 08/16/25 00:00 08/16/25 08:52 10 MG objective General: the patient is well developed and nourished. No acute distress. MENTAL STATUS: Awake and alert. Oriented to person, place, time and general circumstances. Able to give personal history. s SPEECH, LANGUAGE, HIGHER CORTICAL FUNCTION: no aphasia or dysathria. CRANIAL NERVES: Pupils are equal, round and reactive. EOMs full and conjugate. No nystagmus. Facial sensation intact in all three divisions bilaterally. Mandibular strength intact. Facial muscles symmetrical and strength intact. Tongue midline. No fasciculations or atrophy. SENSATION: Sensation to touch and pinprick is normal. MOTOR: Normal tone in the upper and lower extremity. Normal muscle bulk. No fasciculations. No abnormal movements or posturing. Muscle strength of the major groups in the left extremities is 5/5. Muscle strength of the major groups in the right extremities is: Upper: 4/5. Lower: 4/5. REFLEXES: Deep tendon reflexes normal and symmetrical. No pathological reflexes. CEREBELLAR/COORDINATION: Finger to nose is normal in the left arm GAIT/STATION: deferred. laboratory and microbiology Laboratory Tests 08/16/25 05:08 Test 08/16/25 05:08 Range/Units Serum Glucose 82 74-106 mg/dL Problem List Left hemiparesis, paresthesia to rule out acute stroke Multiple chronic sided strokes Obesity Sleep-related breathing disorder Assessment/Plan Monitoring Supportive treatment Telemetry JASMYNE Plavix 75 mg daily for 21 days Aspirin 81 mg daily Lipitor 40 mg daily APAP in the hospital Weight control Hypersomnia precautions discussed Further address his sleep-related breathing disorder as outpatient. He has been advised to follow up with me on discharge This medical document was created using an electronic medical record system with b-datumation system. Although this document has been carefully reviewed, there may still be some phonetic and typographical errors. These areas are purely typographical due to imperfections of the software programs, and do not reflect any compromise in the patient's medical care. Prognosis poor Plan discussed with: Patient, Other EMILY COOK MD Aug 16, 2025 10:04
[2025-08-16] MEDS: LIDOCAINE VISCOUS 2% 15ML UD MT ONE (11:15)
[2025-08-16] MEDS: MIDAZOLAM HCL 2MG/2ML 2ml VIAL (1mg/ml) IV ONE ×2 (11:15→12:15)
[2025-08-16] MEDS: fentaNYL CITRATE 100 MCG/2 ML VL IV ONE (11:15)
[2025-08-16] MEDS: MIDAZOLAM HCL 2MG/2ML 2ml VIAL (1mg/ml) ONE (12:23)
--- NOTE | 2025-08-16 12:43 | DVHPN2 ---
Progress Note Date Seen: Aug 16, 2025 Medical Necessity Reason Pt with a Central, PICC or Fol: No Subjective Patient reports: Feels better Other Systems: R sided weakness s/p curt Objective vital signs Vital Sign Date Time Temp Pulse Resp B/P (MAP) Pulse Ox O2 Delivery O2 Flow Rate FiO2 08/16/25 08:52 156/104 08/16/25 08:42 98.0 88 17 100 98.0 08/16/25 08:15 Room Air 0.0 08/16/25 08:15 21 Total Intake and Output 08/15/25 08/15/25 08/16/25 15:00 23:00 07:00 Intake Total 0 ml Balance 0 ml medications Current Medications Medications Dose Ordered Sig/Vitaly Route Start Time Stop Time Status Last Admin Dose Admin Sodium Chloride 10 ml Q8HR IV 08/15/25 06:00 08/16/25 06:00 10 ML Acetaminophen 650 mg Q6HP PRN PO 08/15/25 00:00 Aspirin 81 mg DAILY PO 08/15/25 10:00 08/15/25 10:00 81 MG Clopidogrel Bisulfate 75 mg DAILY PO 08/15/25 10:00 08/15/25 10:00 75 MG Atorvastatin Calcium 40 mg HS PO 08/15/25 22:00 08/15/25 23:45 40 MG Lorazepam 1 mg ONCE PRN IV 08/15/25 10:00 Enoxaparin Sodium 40 mg DAILY SC 08/16/25 10:00 Hydralazine HCl 10 mg Q6HP PRN IV 08/16/25 00:00 08/16/25 08:52 10 MG Examination: GENERAL:Abnormal, HEENT:Abnormal, LUNGS:Abnormal, CVS:Abnormal, ABDOMEN:Abnormal laboratory and microbiology Laboratory Tests 08/16/25 05:08 Test 08/16/25 05:08 Range/Units Serum Glucose 82 74-106 mg/dL Problem List/Assessment/Plan Problem List/Assessment/Plan cva htn obesity no cardioembolic source of cva no large shutn, normal lvef cont asa, statin fu neuro recs outpt holter Plan discussed with: Patient My Orders My Orders Orders - COY GOSS MD Procedure Category Date Status Time Midazolam Injection PHA 08/16/25 Logged (Versed Injection) 12:15 Date of Service: Aug 16, 2025 Billing Provider: COY GOSS MD Common Visit Codes: NOT BILLABLE COY GOSS MD Aug 16, 2025 12:43
--- NOTE | 2025-08-16 12:45 | DVHOP2 ---
Operative Report Operative Report [facility] PROCEDURE REPORT [place], [place] Date of Service: 08/16/25 Exhibit Designer: Coy Goss MD PROCEDURES PERFORMED: trans esophageal echocardiogram, conscious sedation <15 mins, doppler assesment complete JASMYNE, PREOPERATIVE DIAGNOSES: cva POSTOP DIAGNOSIS: cva DESCRIPTION OF PROCEDURE: The patient or appropriate family signed informed consent understanding the risks, benefits and alternatives of the procedure, they wished to proceed. The patient was brought to the cardiac warehouse laborer in [place] state. the patient was given 15 ml of oral viscous lidocaine. the patient was placed in a left lateral decubitus position with bite block in mouth. NExt conscious sedation was administered per warehouse laborer protocol with _2_ mg of versed and __50_ mcg of fentanyl. Next a JASMYNE probe was advanced to the mid esophagus with ease and multiple planar images obtained. At the completion of the procedure , probe was removed and there were no immediate complications. FINDINGS: Left Ventricle: Normal LV size and function, LVEF estimated at 60% mild to moderate LVH Right Ventricle: NOrmal RV size and function Left atrium: enlarged, Right atrium: normal Left atrial appendage: no thrombus noted small Aortic valve: trileaflet valve, no severe or AI Mitral Valve: structurally normal, mild mitral regurg, no MS Tricuspid Valve: mild tricuspid regurgitation, no TS Pulmonic Valve: structurally normal, no severe PIor PS Interatrial septum: negative color flow for R to L shunt Ascending aorta: no severe plaquing COY GOSS MD Aug 16, 2025 12:44
[2025-08-16] MEDS: LOSARTAN POTASSIUM 25 MG TAB PO SCH (14:30)
[2025-08-17] VITALS (9 sets, daily range): BP systolic 140–160; BP diastolic 95–106; PULSE 78–108; RESP 16–19; TEMP 98–98.6; O2SAT 97–100
[2025-08-17 07:28] LABS: Chloride 106 mmol/L (98-107); Potassium 3.6 mmol/L (3.5-5.1); Sodium 143 mmol/L (136-145)
[2025-08-17 07:29] LABS: Anion Gap 12 (5-15); Calcium 9.4 mg/dL (8.7-10.4); Carbon Dioxide 25 mmol/L (20-31)
[2025-08-17 07:34] LABS: BUN/Creatinine Ratio 17.2 (10.0-20.0); Blood Urea Nitrogen 22 mg/dL (9-23); Glucose 79 mg/dL (74-106)
[2025-08-17 07:37] LABS: Hematocrit 46.7 % (41.0-53.0); Hemoglobin 16.3 g/dL (13.5-17.5); Mean Corpuscular Hemoglobin 27.6 pg (28.0-32.0); Mean Corpuscular Volume 79.3 fL (80.0-100.0); Nucleated Red Blood Cells % 0.1 %
--- NOTE | 2025-08-17 10:37 | DVHPN2 ---
Progress Note - Dictate Date Seen: Aug 17, 2025 Medical Necessity Reason Pt with a Central, PICC or Fol: No Subjective Mr. Rodriguez reasonably years old not sure left-handed gentleman with a history of obesity, he returned to the [facility] on 08/14/25 with a chief c omplaint of left-sided weakness numbness I have seen and examined the patient, nurse, he is doing fine, fully oriented, no new complaints The case was discussed with physical therapist UDS, 08/15/2025: Cannabinoids CBC, 08/14/2025: Unremarkable CMP, 08/14/2025: Unremarkable TG/HDL/LDL/HDL, 08/15/2025: 94/139/96/35 JASMYNE, 08/16/2025: Left Ventricle: Normal LV size and function, LVEF estimated at 60% mild to moderate LVH Right Ventricle: NOrmal RV size and function Left atrium: enlarged, Right atrium: normal Left atrial appendage: no thrombus noted small Aortic valve: trileaflet valve, no severe or AI Mitral Valve: structurally normal, mild mitral regurg, no MS Tricuspid Valve: mild tricuspid regurgitation, no TS Pulmonic Valve: structurally normal, no severe PIor PS Interatrial septum: negative color flow for R to L shunt Ascending aorta: no severe plaquing CT head, 08/11/2025: Small hypodense foci within the bilateral basal ganglia and bilateral thalami which may represent lacunar infarcts of unknown chronicity. MRI would be helpful for further evaluation. Severe chronic small-vessel ischemic changes. Superimposed areas of acute infarct can not be excluded (Small hypodense foci within the bilateral basal ganglia and bilateral thalami which may represent lacunar infarcts of unknown chronicity) CTA head, neck, 08/11/2025: No evidence of acute intracranial hemorrhage, mass effect or hydrocephalus. No evidence of hemodynamically significant intracranial stenosis, proximal occlusion or aneurysm. No evidence of hemodynamically significant cervical stenosis or dissection MRI head, 08/15/2025: Foci of diffusion restriction in the left medulla could be an acute infarct (I saw evidence suggestive of bilateral lacunar strokes in the hemispheres vital signs Vital Sign Date Time Temp Pulse Resp B/P (MAP) Pulse Ox O2 Delivery O2 Flow Rate FiO2 08/17/25 10:02 140/97 08/17/25 08:56 98.0 101 16 97 98.0 08/17/25 06:08 Room Air 0.0 08/17/25 06:08 21 Total Intake and Output 08/16/25 08/16/25 08/17/25 15:00 23:00 07:00 Intake Total 200 ml 600 ml Balance 200 ml 600 ml medications Current Medications Medications Dose Ordered Sig/Vitaly Route Start Time Stop Time Status Last Admin Dose Admin Sodium Chloride 10 ml Q8HR IV 08/15/25 06:00 08/17/25 06:00 10 ML Acetaminophen 650 mg Q6HP PRN PO 08/15/25 00:00 Aspirin 81 mg DAILY PO 08/15/25 10:00 08/17/25 10:02 81 MG Clopidogrel Bisulfate 75 mg DAILY PO 08/15/25 10:00 08/17/25 10:02 75 MG Atorvastatin Calcium 40 mg HS PO 08/15/25 22:00 08/16/25 21:57 40 MG Lorazepam 1 mg ONCE PRN IV 08/15/25 10:00 Enoxaparin Sodium 40 mg DAILY SC 08/16/25 10:00 08/17/25 10:02 40 MG Hydralazine HCl 10 mg Q6HP PRN IV 08/16/25 00:00 08/17/25 04:21 10 MG Losartan Potassium 25 mg DAILY PO 08/16/25 14:30 08/17/25 10:02 25 MG objective General: the patient is well developed and nourished. No acute distress. MENTAL STATUS: Awake and alert. Oriented to person, place, time and general circumstances. Able to give personal history. s SPEECH, LANGUAGE, HIGHER CORTICAL FUNCTION: no aphasia or dysathria. CRANIAL NERVES: Pupils are equal, round and reactive. EOMs full and conjugate. No nystagmus. Facial sensation intact in all three divisions bilaterally. Mandibular strength intact. Facial muscles symmetrical and strength intact. Tongue midline. No fasciculations or atrophy. SENSATION: Sensation to touch and pinprick is normal. MOTOR: Normal tone in the upper and lower extremity. Normal muscle bulk. No fasciculations. No abnormal movements or posturing. Muscle strength of the major groups in the left extremities is 5/5. Muscle strength of the major groups in the right extremities is: Upper: 4/5. Lower: 4/5 except to 2-3/5 in the right plantar dorsiflexor. REFLEXES: Deep tendon reflexes normal and symmetrical. No pathological reflexes. CEREBELLAR/COORDINATION: Finger to nose is normal in the left arm GAIT/STATION: deferred. laboratory and microbiology Laboratory Tests 08/17/25 05:15 Test 08/17/25 05:15 Range/Units Serum Glucose 79 74-106 mg/dL Problem List Left hemiparesis, paresthesia to rule out acute stroke Multiple chronic sided strokes Obesity Sleep-related breathing disorder Assessment/Plan Monitoring Supportive treatment Telemetry JASMYNE Plavix 75 mg daily for 21 days Aspirin 81 mg daily Lipitor 40 mg daily APAP in the hospital Weight control Hypersomnia precautions discussed Further address his sleep-related breathing disorder as outpatient. He has been advised to follow up with me on discharge This medical document was created using an electronic medical record system with [employer] dictation system. Although this document has been carefully reviewed, there may still be some phonetic and typographical errors. These areas are purely typographical due to imperfections of the software programs, and do not reflect any compromise in the patient's medical care. Prognosis poor Plan discussed with: Patient, Other EMILY COOK MD Aug 17, 2025 10:37
[2025-08-17] MEDS: LOSARTAN POTASSIUM 25 MG TAB PO ONE (10:45)
[2025-08-17] MEDS ORDERED: LOSA-534 PO (11:03)
[2025-08-17] MEDS ORDERED: ASPI-325 PO (11:03)
[2025-08-17] MEDS ORDERED: CLOP75TA70 PO (11:03)
[2025-08-17] MEDS ORDERED: AML5T PO (11:03)
[2025-08-17] MEDS ORDERED: ATOR20TA50 PO (11:03)
--- NOTE | 2025-08-17 16:42 | DVHDSRES ---
Discharge Summary Date of Admission Resident Creating Document: SALVADOR CASTILLO RESIDENT Aug 14, 2025 at 23:51 Date of Discharge: Aug 17, 2025 Labs/Diagnostic Data: Laboratory Results Test 08/17/25 05:15 08/15/25 10:28 08/15/25 09:39 08/14/25 22:51 White Blood Count 9.4 10^3/uL (4.4-10.8) Red Blood Count 5.88 10^6/uL (4.5-5.90) Hemoglobin 16.3 g/dL (13.5-17.5) Hematocrit 46.7 % (41.0-53.0) Mean Corpuscular Volume 79.3 fL (80.0-100.0) Mean Corpuscular Hemoglobin 27.6 pg (28.0-32.0) Mean Corpuscular Hemoglobin Concent 34.8 g/dL (32.0-36.0) Red Cell Distribution Width 13.1 % (11.8-14.3) Platelet Count 298 10^3/uL (140-450) Mean Platelet Volume 7.2 fL (6.9-10.8) Neutrophils (%) (Auto) 72.1 % (37.0-80.0) Lymphocytes (%) (Auto) 16.4 % (10.0-50.0) Monocytes (%) (Auto) 9.6 % (0.0-12.0) Eosinophils (%) (Auto) 1.3 % (0.0-7.0) Basophils (%) (Auto) 0.6 % (0.0-2.0) Neutrophils # (Auto) 6.8 10 ^3/uL (1.6-8.6) Lymphocytes # (Auto) 1.5 10 ^3/uL (0.4-5.4) Monocytes # (Auto) 0.9 10 ^3/uL (0-1.3) Eosinophils # (Auto) 0.1 10 ^3/uL (0-0.8) Basophils # (Auto) 0.1 10 ^3/uL (0-0.2) Nucleated Red Blood Cells 0.1 % Sodium Level 143 mmol/L (136-145) Potassium Level 3.6 mmol/L (3.5-5.1) Chloride Level 106 mmol/L (98-107) Carbon Dioxide Level 25 mmol/L (20-31) Anion Gap 12 (5-15) Blood Urea Nitrogen 22 mg/dL (9-23) Creatinine 1.28 mg/dL (0.700-1.30) Glomerular Filtration Rate Calc 71 mL/min (>90) BUN/Creatinine Ratio 17.2 (10.0-20.0) Serum Glucose 79 mg/dL (74-106) Calcium Level 9.4 mg/dL (8.7-10.4) Hemoglobin A1c 5.3 % A1C (<5.7) Total Bilirubin 1.0 mg/dL (0.2-1.0) Aspartate Amino Transferase (AST) 26 U/L (13-40) Alanine Aminotransferase (ALT) 19 U/L (7-40) Alkaline Phosphatase 68 U/L (46-116) Total Protein 8.1 g/dL (5.7-8.2) Albumin 4.6 g/dL (3.2-4.8) Triglycerides Level 94 mg/dL (< 150) Cholesterol Level 139 mg/dL (< 200) LDL Cholesterol 96 mg/dL (< 100) HDL Cholesterol 35 mg/dL (40-59) Urine Color Yellow (Yellow) Urine Clarity Clear (Clear) Urine pH 5.5 (5.0-9.0) Urine Specific Alpha > 1.050 (1.001-1.035) Urine Protein 1+ (Negative) Urine Ketones 3+ (Negative) Urine Blood Trace /uL (Negative) Urine Nitrite Negative (Negative) Urine Bilirubin Negative (Negative) Urine Urobilinogen Normal mg/dL (Negative) Urine Leukocyte Esterase Negative /uL (Negative) Urine RBC 2 /hpf (0 - 3) Urine Microscopic WBC < 1 /HPF (0-3) Urine Squamous Epithelial Cells Few /hpf (<5) Urine Bacteria None seen /hpf (None Seen) Urine Mucus Few (None Seen) Urine Glucose Normal mg/dL (Normal) Urine Opiates Screen Neg (NEGATIVE) Urine Fentanyl Screen Neg (NEGATIVE) Urine Barbiturates Screen Neg (NEGATIVE) Urine Phencyclidine Screen Neg (NEGATIVE) Urine Amphetamines Screen Neg (NEGATIVE) Urine Benzodiazepines Screen Neg (NEGATIVE) Urine Cocaine Screen Neg (NEGATIVE) Urine Cannabinoids Screen Pos (NEGATIVE) Troponin I High Sensitivity 26 ng/L (</=54) Test 08/14/25 21:17 Prothrombin Time 11.8 sec (9.3-11.8) Prothrombin Time INR 1.13 (0.9-1.15) Activated Partial Thromboplast Time 30.2 SEC (24.5-34.5) Magnesium Level 1.9 mg/dL (1.6-2.6) Other Laboratory Tests 08/17/25 05:15 Brief Hx & Hospital Course: Brief history on admission And hospital course: Patient is a 44-year-old male with no significant past medical history presented to [facility] ED with complaint of right-sided weakness and numbness. He reports that symptoms began 3 days ago at approximately 0700 AM upon waking. He describes being able to feel his right side but notes noticeable dragging compared to his baseline. On the same day, 08/11/2025, he presented to the ED and was informed he may have experienced a "baby stroke." However, he left against medical advice (AMA) due to prolonged wait times. The patient returned to the ED due to persistent symptoms. He now reports difficulty moving his right arm above 90 degrees. He denies any new or worsening neurological deficits since the initial onset and reports no additional acute symptoms. Initial laboratory results were unremarkable. Head and neck CT imaging showed no evidence of acute intracranial hemorrhage, mass effect, hydrocephalus. Brain MRI shows Foci of diffusion restriction in the left medulla. The patient was started on aspirin, Plavix, atorvastatin. Neurology was on board, recommended JASMYNE. JASMYNE showed LVEF 60%, moderate LVH, enlarged left atrium, mild MR, mild TR. No [id number] shunt seen, small left atrial appendage without thrombus. Patient was also on BiPAP for sleep apnea. His symptoms are improving, with increased power in his extremities, patient is stable for discharge. Patient will follow with Cardiology as outpatient for event monitor and will continue physical therapy as outpatient. 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 daily Continue atorvastatin p.o. daily Continue Plavix p.o. daily for 21 days Continue losartan p.o. daily Continue Amlodipine p.o. daily Consults/Reason for consult Neurology and cardiology consulted, advised close cardiac monitoring and CPAP for CARLEY. Operations or Procedures Carotid Duplex Date: 08/15/2025 09:01 AM Clinical History: TIA Comparison: CT ANGIO HEAD/NECK on DOS: 08/14/25 Technique: Duplex Doppler evaluation of the extracranial carotid and vertebral arteries including color Doppler and spectral/pulsed waveform analysis was performed. Findings: Velocities and ratios within normal limits. IMPRESSION: No hemodynamically significant stenosis noted in the right carotid system. No hemodynamically significant stenosis noted in the left carotid system. Reference: Radiology 2003; [id number] MRI BRAIN HEAD WO CONTRAST INDICATION: TIA EXAM DATE: 08/15/2025 09:55 AM COMPARISON: CT ANGIO HEAD/NECK on DOS: 08/14/25, CT HEAD WITHOUT CONTRAST on DOS: 08/11/25 PROCEDURE: Using a 1.5 Blessing scanner, multisequence multiplanar imaging of the brain was obtained. FINDINGS: Foci of diffusion restriction in the left medulla could be an acute infarct. Sulcal and ventricular prominence with nonspecific white matter changes present. The brain otherwise shows normal morphology and signal characteristics. No abnormal susceptibility hypointensity is present. The ventricles are normal in size. The midline structures are intact. The major intracranial flow voids are present. The aerated spaces are normal. The orbital contents and extracranial soft tissues appear normal. IMPRESSION: Foci of diffusion restriction in the left medulla could be an acute infarct. Critical Result: Infarct Findings discussed with at 08/15/2025 10:47 AM and acknowledged receipt and understanding of the findings. INDICATION: right sided weakness COMPARISON: CT HEAD WITHOUT CONTRAST on DOS: 08/11/25 TECHNIQUE: CTA head without and with intravenous contrast. CTA neck with intravenous contrast. 3D image postprocessing was performed on a dedicated workstation and images were used for interpretation and reporting. Radiation Dose Information: CT Dose: CTDI volume is 62.56 mGy. Dose-length product is 1731.36 mGy*cm FINDINGS: CT head: There is no evidence of acute intracranial hemorrhage, extra-axial collection, mass effect, midline shift, herniation or hydrocephalus. The ventricles, sulci and cisterns are age appropriate. The carey-white differentiation is intact. The visualized paranasal sinuses and mastoid air cells are clear. The surrounding soft tissues and osseous structures are unremarkable. CTA head: There is normal enhancement of the visualized distal internal carotid, anterior and middle cerebral arteries. There is a normal anterior communicating artery complex. There are bilateral posterior communicating arteries. The vertebral, basilar, cerebellar and posterior cerebral arteries are within normal limits. The early parenchymal enhancement is grossly unremarkable. The visualized intracranial venous structures are grossly unremarkable. CTA neck: The visualized thoracic aortic arch and proximal great vessels are unremarkable. The left common, internal and external carotid arteries are within normal limits. The right common, internal and external carotid arteries are within normal limits. The cervical segments of the right and left vertebral arteries are within normal limits. The limited visualized lung apices are clear. The surrounding soft tissues and osseous structures are otherwise unremarkable. IMPRESSION: No evidence of acute intracranial hemorrhage, mass effect or hydrocephalus. No evidence of hemodynamically significant intracranial stenosis, proximal occlusion or aneurysm. No evidence of hemodynamically significant cervical stenosis or dissection. All CT scans at this medical facility are performed using dose modulation techniques as appropriate to a performed exam including the following: Automated exposure control was utilized; adjustment of the MA and/or KV according to patient size; and use of iterative reconstruction technique. EXAM: XY CHEST PORTABLE CLINICAL HISTORY: SOB TECHNIQUE: Single AP view of the chest WID: COMPARISON: None FINDINGS: Lines and tubes: None Chest: The heart size and pulmonary vasculature is within normal limits. No pleural effusion, pneumothorax, or consolidation. The osseous structures are grossly intact. IMPRESSION: 1. No acute cardiopulmonary abnormality. Condition at Discharge: Stable Final Diagnosis/Problems List Medullary Ischemic Stroke Transient Ischemic Attack Acute ischemic stroke with acute medullary infarct Multiple chronic strokes Hypertensive urgency, resolving Obesity class 3 Sleep-related breathing disorder Sleep apnea Substance abuse Discharge Disposition: Home with Health Services Discharge Instruct/Medications Diet: Cardiac 2g Na,low cholest Activity: No Restrictions, As Tolerated Follow Up/Referral: Follow with PCP after 1 week Follow with Cardiology as outpatient for event monitor Follow with Neurology as outpatient Medications: Continue aspirin p.o. daily Continue atorvastatin p.o. daily Continue Plavix p.o. daily for 21 days Continue losartan p.o. daily Continue Amlodipine p.o. daily New Medications: Amlodipine Besylate (Norvasc Tablet) 5 Mg Tb 5 MG PO DAILY for 30 Days, #30 TAB 2 Refills Aspirin (Aspirin Low Dose) 81 Mg Tab 81 MG PO DAILY for 30 Days, #30 TAB 3 Refills Atorvastatin Calcium (Atorvastatin Calcium) 20 Mg Tab 40 MG PO HS for 30 Days, #60 TAB 3 Refills Clopidogrel Bisulfate (Clopidogrel) 75 Mg Tab 75 MG PO DAILY for 21 Days, #21 TAB Losartan Potassium (Losartan Potassium) 50 Mg Tab 50 MG PO DAILY for 30 Days, #30 TAB 3 Refills Scheduled Amlodipine Besylate (Norvasc Tablet), 5 MG PO DAILY Aspirin (Aspirin Low Dose), 81 MG PO DAILY Atorvastatin Calcium (Atorvastatin Calcium), 40 MG PO HS Clopidogrel Bisulfate (Clopidogrel), 75 MG PO DAILY Losartan Potassium (Losartan Potassium), 50 MG PO DAILY Discharge Statement: "Patient was advised to return to the ER or call 911 if any headaches, dizziness, shortness of breath, chest pain, abdominal pain, bleeding, fevers, or worsening of medical condition. Patient was counseled about treatment plan, medications, possible side effects, patientverbalized understanding. All questions were answered to the best of my ability. This discharge took greater then 30 minutes in planning, reviewing documentation, counseling the patient, and discussing with other team members." DME: Diagnosis: Medullary Stroke with right sided deficit ASSESSMENT ASSESSMENT Assessment Medullary Ischemic Stroke Date of Service: Aug 17, 2025 Billing Provider: CHNE ENCARNACION MD Common Visit Codes: 35818-XJH/OBS DISCH DAY >30min SALVADOR CASTILLO RESIDENT Aug 17, 2025 16:42
[2025-08-18] MEDS ORDERED: LOSARTAN POTASSIUM 50 MG TAB PO SCH (10:00)
== END 2025-08-17 17:15 | disposition home health service (06) | DRG 45 ==
LOC: ER 20:36 → OVERFLOW 23:51 → TELE-WESTW 08-15 22:10
PROVIDERS: ADMIT Internal Medicine Geriatric Medicine; ATTEND Internal Medicine Geriatric Medicine
PROC: 5A09357 Assistance with Respiratory Ventilation, Less than 24 Consecutive Hours, Continuous Positive Airway Pressure (ICD-10-PCS; principal; 2025-08-15)
PROC: 5A09357 Assistance with Respiratory Ventilation, Less than 24 Consecutive Hours, Continuous Positive Airway Pressure (ICD-10-PCS; 2025-08-16)
PROC: B24BZZ4 Ultrasonography of Heart with Aorta, Transesophageal (ICD-10-PCS; 2025-08-16)
DX: I63.9 Cerebral infarction, unspecified (principal); I16.1 Hypertensive emergency; G81.94 Hemiplegia, unspecified affecting left nondominant side; E66.01 Morbid (severe) obesity due to excess calories; I10 Essential (primary) hypertension; I34.0 Nonrheumatic mitral (valve) insufficiency; E66.813 Obesity, class 3; F12.10 Cannabis abuse, uncomplicated; Z88.2 Allergy status to sulfonamides; Z68.41 Body mass index [BMI] 40.0-44.9, adult; Z83.3 Family history of diabetes mellitus; Z82.49 Family history of ischemic heart disease and other diseases of the circulatory system; Z79.82 Long term (current) use of aspirin; Z79.02 Long term (current) use of antithrombotics/antiplatelets; Z79.899 Other long term (current) drug therapy
CPT/HCPCS: 36415; 70496; 70498; 70551; 71045; 80048; 80053; 80061; 80307; 81001; 83036; 83735; 84484; 85025; 85610; 85730; 86850; 86900; 86901; 93005; 93312; 93886; 94660; 97110; 97116; 97163; 97530; 99152; G0378; J2250